=== PATIENT | female | born 1965 | race African-American/Black ===

== ENCOUNTER 2018-03-26 10:59 | Inpatient (IN) | payer BC, OTHER ==
[2018-03-26 11:31] VITALS: BMI 21.7
--- NOTE | 2018-03-26 12:22 | HP ---
"CIWA Score - CIWA Score Nausea/Vomitin-Int. Nausea w/Dry Heave Muscle Tremors: 4-Moderate,w/Arms Extend Anxiety: 3 Agitation: 1-Slight > Activity Paroxysmal Sweats: 1-Minimal Palms Moist Orientation: 0-Oriented Tacttile Disturbances: 0-None Auditory Disturbances: 0-None Visual Disturbances: 0-None Headache: 2-Mild CIWA-Ar Total Score: 15 Admission ROS S - HPI Chief Complaint: Here for alcohol withdrawal. Allergies/Adverse Reactions: Allergies Allergy/AdvReac Type Severity Reaction Status Date / Time No Known Allergies Allergy Verified 03/26/18 11:39 History of Present Illness: Hx alcohol use since age [age]. Was drinking 1 pint vodka until 2 weeks ago and in an effort to stop has decreased alcohol use to 1/2 pint vodka daily. Hx blackouts. Denies hx seizures. Denies Xanax or other substances of abuse. Longest length of sobriety was 16 months in early , and January 2018 had 3 weeks sobriety. Hx hypertension and acid reflux. 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 Hx acid reflux. Hx depression - on meds. [facility] sees a mental health provider. Was seen at [facility] on 03/26/18 and [facility] was given B/P meds. Discharge papers in belongings. Search Terms: Emilee lopez, 1965 Search Date: 03/26/2018 12:18:00 PM The Drug Utilization Report below displays all of the controlled substance prescriptions, if any, that your patient has filled in the last twelve months. The information displayed on this report is compiled from pharmacy submissions to the Department, and accurately reflects the information as submitted by the pharmacies. This report was requested by: Kristine Moore | Reference #: [id number] There are no results for the search terms that you entered. Exam Limitations: No Limitations - Ebola screening Have you traveled outside of the country in the last 21 days: No (N) Have you had contact with anyone from an Ebola affected area: No Have you been sick,other than usual withdrawal symptoms: No Do you have a fever: No - Review of Systems Constitutional: Diaphoresis, Changes in sleep (Difficulty falling asleep) EENT: reports: Blurred Vision (needs glasses.), Recent change in vision ((R) eye w/ stroke resulting in partial vision in (R) eye. Seen by opthamologist at home) Respiratory: reports: Cough (Dry cought x 2 days. Denies chest pain or SOB) Cardiac: reports: No Symptoms Reported GI: reports: Nausea (r/t withdrawal), Vomiting (was vomiting last 2 days r/t withdrawal) : reports: No Symptoms Reported Musculoskeletal: reports: No Symptoms Reported Integumentary: reports: No Symptoms Reported Neuro: reports: Headache (r/t withdrawal) Endocrine: reports: No Symptoms Reported Hematology: reports: No Symptoms Reported Psychiatric: reports: Judgement Intact, Orientated x3, Agitated, Anxious, Depressed (Denies thoughts of harming self or others.) Patient History - Patient Medical History Hx Anemia: No Hx Asthma: No Hx Chronic Obstructive Pulmonary Disease (COPD): No Hx Cancer: No Hx Cardiac Disorders: Yes (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) Hx Congestive Heart Failure: No Hx Hypertension: Yes (ON MEDICATION) Hx Hypercholesterolemia: No Hx Pacemaker: No HX Cerebrovascular Accident: No Hx Seizures: No (black outs) Hx Dementia: No Hx Diabetes: No Hx Gastrointestinal Disorders: Yes (GERD) Hx Liver Disease: No Hx Genitourinary Disorders: No Hx Sexually Transmitted Disorders: No Hx Renal Disease (ESRD): No Hx Thyroid Disease: No Hx Human Immunodeficiency Virus (HIV): No (neg 2014) Hx Hepatitis C: No Hx Depression: Yes ( Denies suicide or violent ideation) Hx Suicide Attempt: No Hx Bipolar Disorder: No Hx Schizophrenia: No - Patient Surgical History Past Surgical History: Yes Hx Neurologic Surgery: No Hx Cataract Extraction: No Hx Cardiac Surgery: No Hx Lung Surgery: No Hx Breast Surgery: No Hx Breast Biopsy: No Hx Abdominal Surgery: No Hx Appendectomy: No Hx Cholecystectomy: No Hx Genitourinary Surgery: No Hx Section: No Hx Orthopedic Surgery: No Other Surgical History: tubal ligation in 2005 Anesthesia Reaction: No - PPD History Previous Implant?: Yes Documented Results: Negative w/proof Implanted On Prior [facility] Admission?: Yes Date: 04/24/15 Results: NEGATIVE PPD to be Administered?: Yes - Reproductive History Patient is a Female of Child Bearing Age (11 -55 yrs old): Yes Last Menstrual Period: 03/25/14 (Menopause) Patient : No - Smoking Cessation Smoking history: Former smoker Have you smoked in the past 12 months: No If you are a former smoker, when did you quit?: at age 37 yrs Hx Chewing Tobacco Use: No Initiated information on smoking cessation: No - Substance & Tx. History Hx Alcohol Use: Yes Hx Substance Use: Yes Substance Use Type: Alcohol Hx Substance Use Treatment: Yes (detox ) - Substances Abused Alprazolam (Xanax) Date of Last Use: 03/25/18 Alcohol Route: Oral Frequency: Daily Amount used: 1/2 PINT OF VODKA Age of first use: 20 Date of Last Use: 03/25/18 Family Disease History - Family Disease History Family Disease History: Other: Father, Brother, Sister Admission Physical Exam [facility] - Vital Signs Vital Signs: Vital Signs - 24 hr 03/26/18 11:29 Temperature 99.1 F Pulse Rate 64 Respiratory 18 Rate Blood Pressure 132/84 - Physical General Appearance: Yes: Mild Distress, Tremorous, Irritable, Sweating, Anxious HEENTM: Yes: EOMI, Hearing grossly Normal, ADOLPH Respiratory: Yes: Chest Non-Tender, Lungs Clear, Normal Breath Sounds, No Respiratory Distress Neck: Yes: No masses,lesions,Nodules, Supple Breast: Yes: Breast Exam Deferred Abdominal: Yes: Non Tender, Soft, Increased Bowel Sounds Genitourinary: Yes: Within Normal Limits Back: Yes: Normal Inspection Musculoskeletal: Yes: full range of Motion, Gait Steady Extremities: Yes: Normal Capillary Refill, Normal Range of Motion, Non-Tender, Tremors (hands upon arms extended extended) Neurological: Yes: cell support operator II-XII NML intact, Fully Oriented, Motor Strength 5/5, Normal Mood/Affect Integumentary: Yes: Normal Color, Dry, Warm Lymphatic: Yes: Within Normal Limits - Diagnostic (1) Alcohol dependence with uncomplicated withdrawal Current Visit: Yes Status: Acute (2) Essential (primary) hypertension Current Visit: Yes Status: Chronic (3) GERD (gastroesophageal reflux disease) Current Visit: Yes Status: Chronic Qualifiers: Esophagitis presence: esophagitis presence not specified Qualified Code(s) : K21.9 - Gastro-esophageal reflux disease without esophagitis Cleared for Admission [facility] - Detox or Rehab [facility] Level of Care: Medically Managed Detox Regimen/Protocol: Librium [facility] Breath Alcohol Content Breath Alcohol Content: 0 Urine Pregancy Test - Result Urine Test Results: Negative- NO Line Present Urine Drug Screen - Results Drug Screen Negative: Yes"
[2018-03-26] MEDS ORDERED: MAG HYDROX/AL HYDROX/SIMETH 30 ML UNIT-DOSE CUP PO PRN (12:57)
[2018-03-26] MEDS ORDERED: MAGNESIUM CITRATE 300 ML BOTTLE PO PRN (12:57)
[2018-03-26] MEDS ORDERED: IBUPROFEN 400 MG TABLET (FP) PO PRN (12:57)
[2018-03-26] MEDS ORDERED: MENTHOL/PHENOL 1 EACH UD MM PRN (12:57)
[2018-03-26] MEDS ORDERED: LOPERAMIDE HCL 2 MG CAPSULE PO PRN (12:57)
[2018-03-26] MEDS ORDERED: P-EPHED 60MG/TRIPROLIDI 2.5MG TABLET PO PRN (12:57)
[2018-03-26] MEDS ORDERED: chlordiazePOXIDE HCL 25 MG CAPSULE PO PRN (12:57)
[2018-03-26] MEDS ORDERED: hydrOXYzine PAMOATE 50 MG CAPSULE (FP) PO PRN (12:57)
[2018-03-26] MEDS ORDERED: guaiFENesin/D-METHORPHAN HB 10 ML UNIT-DOSE CUPS PO PRN (12:57)
[2018-03-26] MEDS ORDERED: MAGNESIUM HYDROX 2400MG/30ML ORAL SUSPENSION 30 ML CUP PO PRN (12:57)
[2018-03-26] MEDS ORDERED: ACETAMINOPHEN 325 MG TABLET (FP) PO PRN (12:57)
[2018-03-26] MEDS ORDERED: chlordiazePOXIDE HCL 25 MG CAPSULE PO ONE (14:45)
[2018-03-26] MEDS: chlordiazePOXIDE HCL 25 MG CAPSULE PO SCH ×2 (17:54→22:06)
[2018-03-26 21:20] LABS: URINE APPEARANCE CLEAR; URINE BILIRUBIN NEGATIVE (<2.0 mg/dL); URINE COLOR YELLOW; URINE GLUCOSE (UA) NEGATIVE (NEGATIVE); URINE KETONE NEGATIVE (NEGATIVE); URINE LEUK ESTERASE NEGATIVE (NEGATIVE); URINE NITRITE NEGATIVE (NEGATIVE)
[2018-03-26 21:21] LABS: URINE PROTEIN 2+ (NEGATIVE)
[2018-03-26 21:26] LABS: EPI CELLS RARE /HPF (FEW); URINE MUCUS RARE
[2018-03-26] MEDS: MELATONIN 5 MG TABLETS PO PRN (22:06)
[2018-03-26] MEDS: THIAMINE HCL 100 MG TABLET (FP) PO SCH (22:06)
[2018-03-27] MEDS: chlordiazePOXIDE HCL 25 MG CAPSULE PO SCH ×4 (06:14→22:35)
[2018-03-27 09:52] LABS: MCH 30.5 pg (25.7-33.7); MEAN PLT VOLUME 8.9 fl (7.5-11.1)
[2018-03-27 09:54] LABS: HEMATOCRIT 42.3 % (32.4-45.2); HEMOGLOBIN 13.8 GM/dL (10.7-15.3); MCHC 32.7 g/dl (32.0-36.0); MEAN CELL VOLUME 93.3 fl (80-96); PLATELET COUNT 209 K/MM3 (134-434); RBC 4.53 M/mm3 (3.60-5.2); RDW 13.9 % (11.6-15.6); WHITE BLOOD COUNT 4.6 K/mm3 (4.0-10.0)
[2018-03-27 09:59] LABS: CHLORIDE 94 mmol/L (98-107); POTASSIUM 4.1 mmol/L (3.5-5.1); SODIUM 137 mmol/L (136-145)
[2018-03-27 10:09] LABS: ALBUMIN 4.1 g/dl (3.4-5.0); ALK PHOS 96 U/L (45-117); ANION GAP 12 MMOL/L (8-16); BILIRUBIN,TOTAL 1.5 mg/dL (0.2-1.0); BLOOD UREA NITROGEN 12 mg/dL (7-18); CALCIUM 9.4 mg/dL (8.5-10.1); CO2 31 mmol/L (21-32); CREATININE 0.8 mg/dL (0.55-1.02); GLUCOSE,RANDOM 130 mg/dL (74-106); SGOT/AST 43 U/L (15-37); SGPT/ALT 34 U/L (12-78)
[2018-03-27] MEDS: PANTOPRAZOLE 20 MG TABLET (FP) PO SCH (10:15)
[2018-03-27] MEDS: amLODIPine BESYLATE 5 MG TABLET (FP) PO SCH (10:15)
[2018-03-27] MEDS: PRENATAL VITAMINS W/ FOLIC ACID TABLET (FP) PO SCH (10:15)
--- NOTE | 2018-03-27 10:35 | CONSULT ---
[facility] Psychiatric Consult - Data Date of interview: 03/27/18 Admission source: [facility] Identifying data: Patient is a 52 year old single female, mother of five, unemployed, domiciled, and is supported by public assistance. This is one of multiple admissions for patient. Pt. admitted to for alcohol dependence. Substance Abuse History: Smoking Cessation. Smoking history: Former smoker. Have you smoked in the past 12 months: No. If you are a former smoker, when did you quit?: at age 37 yrs. Hx Chewing Tobacco Use: No. Initiated information on smoking cessation: No. - Substance & Tx. History. Hx Alcohol Use: Yes. Hx Substance Use: Yes. Substance Use Type: Alcohol. Hx Substance Use Treatment: Yes (detox ). - Substances Abused. Alprazolam (Xanax). Date of Last Use: 03/25/18. Alcohol. Route: Oral. Frequency: Daily. Amount used: 1/2 PINT OF VODKA. Age of first use: 20. Date of Last Use: Medical History: hypertension, GERD Psychiatric History: Patient reports multiple admissions to the CPEP at [facility] but was discharged after being retained for 72 hours. Outpatient psychiatric services is provided at the [facility] in [place] and is prescribed prozac 20mg daily + Naltrexone 50mg. Pt. was recently restarted on prozac 10mg while awaiting transfer to detox at [facility]. Pt. requesting to continue prozac at 10mg. Pt. denies h/o suicide attempt. Physical/Sexual Abuse/Trauma History: denies. Mental Status Exam - Mental Status Exam Alert and Oriented to: Time, Place, Person Cognitive Function: Good Patient Appearance: Well Groomed Mood: Euthymic Affect: Appropriate Patient Behavior: Appropriate, Cooperative Speech Pattern: Clear, Appropriate Voice Loudness: Normal Thought Process: Intact, Goal Oriented Thought Disorder: Not Present Hallucinations: Denies Suicidal Ideation: Denies Homicidal Ideation: Denies Insight/Judgement: Poor Sleep: Fair Appetite: Fair Muscle strength/Tone: Normal Gait/Station: Normal Psychiatric Findings - Problem List ([place] 1, 2,3) (1) Alcohol dependence with uncomplicated withdrawal Current Visit: Yes Status: Acute (2) Alcohol-induced mood disorder Current Visit: Yes Status: Acute - Initial Treatment Plan Initial Treatment Plan: Psychoeducation provided. Detoxification in progress. Prozac 10mg daily. Benefits and side effects discussed. Verbal consent given.
--- NOTE | 2018-03-27 12:12 | PN ---
[facility] CIWA - CIWA Score Nausea/Vomitin-Mild Nausea/No Vomiting Muscle Tremors: 4-Moderate,w/Arms Extend Anxiety: 3 Agitation: 4-Moderately Restless Paroxysmal Sweats: 1-Minimal Palms Moist Orientation: 1-Uncertain about Date Tacttile Disturbances: 0-None Auditory Disturbances: 0-None Visual Disturbances: 0-None Headache: 0-None Present CIWA-Ar Total Score: 14 BHS Progress Note (SOAP) Subjective: sweat tremor gi distress muscle aches trouble sleep at night Objective: 03/27/18 12:13 Vital Signs Temperature 99.0 F 03/27/18 09:32 Pulse Rate 93 H 03/27/18 09:32 Respiratory Rate 16 03/27/18 09:32 Blood Pressure 109/80 03/27/18 09:32 O2 Sat by Pulse Oximetry (%) Laboratory Last Values WBC 4.6 K/mm3 (4.0-10.0) 03/27/18 07:30 RBC 4.53 M/mm3 (3.60-5.2) 03/27/18 07:30 Hgb 13.8 GM/dL (10.7-15.3) 03/27/18 07:30 Hct 42.3 % (32.4-45.2) 03/27/18 07:30 MCV 93.3 fl (80-96) 03/27/18 07:30 MCH 30.5 pg (25.7-33.7) 03/27/18 07:30 MCHC 32.7 g/dl (32.0-36.0) 03/27/18 07:30 RDW 13.9 % (11.6-15.6) 03/27/18 07:30 Plt Count 209 K/MM3 (134-434) D 03/27/18 07:30 MPV 8.9 fl (7.5-11.1) 03/27/18 07:30 Sodium 137 mmol/L (136-145) 03/27/18 07:30 Potassium 4.1 mmol/L (3.5-5.1) 03/27/18 07:30 Chloride 94 mmol/L (98-107) L 03/27/18 07:30 Carbon Dioxide 31 mmol/L (21-32) 03/27/18 07:30 Anion Gap 12 MMOL/L (8-16) 03/27/18 07:30 BUN 12 mg/dL (7-18) 03/27/18 07:30 Creatinine 0.8 mg/dL (0.55-1.02) 03/27/18 07:30 Creat Clearance w eGFR > 60 (>60) 03/27/18 07:30 Random Glucose 130 mg/dL (74-106) H 03/27/18 07:30 Calcium 9.4 mg/dL (8.5-10.1) 03/27/18 07:30 Total Bilirubin 1.5 mg/dL (0.2-1.0) H 03/27/18 07:30 AST 43 U/L (15-37) H 03/27/18 07:30 ALT 34 U/L (12-78) 03/27/18 07:30 Alkaline Phosphatase 96 U/L (45-117) 03/27/18 07:30 Total Protein 8.0 g/dl (6.4-8.2) 03/27/18 07:30 Albumin 4.1 g/dl (3.4-5.0) 03/27/18 07:30 Urine Color Yellow 03/26/18 16:50 Urine Appearance Clear 03/26/18 16:50 Urine pH 7.0 (5.0-8.0) D 03/26/18 16:50 Ur Specific [place] 1.028 (1.001-1.035) 03/26/18 16:50 Urine Protein 2+ (NEGATIVE) H 03/26/18 16:50 Urine Glucose (UA) Negative (NEGATIVE) 03/26/18 16:50 Urine Ketones Negative (NEGATIVE) 03/26/18 16:50 Urine Blood Negative (NEGATIVE) 03/26/18 16:50 Urine Nitrite Negative (NEGATIVE) 03/26/18 16:50 Urine Bilirubin Negative (<2.0 mg/dL) 03/26/18 16:50 Urine Urobilinogen 2.0 mg/dL (0.2-1.0) H 03/26/18 16:50 Ur Leukocyte Esterase Negative (NEGATIVE) 03/26/18 16:50 Urine WBC (Auto) 2 /hpf (3-5) 03/26/18 16:50 Urine RBC (Auto) 8 /hpf (0-3) 03/26/18 16:50 Ur Epithelial Cells Rare /HPF (FEW) 03/26/18 16:50 Urine Mucus Rare 03/26/18 16:50 lab noted Assessment: 03/27/18 12:13 withdrawal sx Plan: continue detox
--- NOTE | 2018-03-27 14:18 | EKG ---
Test Reason : Blood Pressure : / mmHG Vent. Rate : 056 BPM Atrial Rate : 056 BPM P-R Int : 180 ms QRS Dur : 100 ms QT Int : 442 ms P-R-T Axes : 054 016 054 degrees QTc Int : 426 ms SINUS BRADYCARDIA WITH PREMATURE ATRIAL COMPLEXES OTHERWISE NORMAL ECG NO PREVIOUS ECGS AVAILABLE Confirmed by PAUL BYRD MD ([id number]) on 03/27/2018 2:18:03 PM Referred By: Confirmed By:PAUL BYRD MD
[2018-03-27] MEDS: THIAMINE HCL 100 MG TABLET (FP) PO SCH (22:35)
[2018-03-27] MEDS: MELATONIN 5 MG TABLETS PO PRN (22:35)
[2018-03-28] MEDS: chlordiazePOXIDE HCL 25 MG CAPSULE PO SCH ×2 (07:21→10:18)
[2018-03-28] MEDS: FLUoxetine HCL 10 MG CAPSULE (FP) PO SCH (10:18)
[2018-03-28] MEDS: PRENATAL VITAMINS W/ FOLIC ACID TABLET (FP) PO SCH (10:18)
[2018-03-28] MEDS: amLODIPine BESYLATE 5 MG TABLET (FP) PO SCH (10:18)
[2018-03-28] MEDS: PANTOPRAZOLE 20 MG TABLET (FP) PO SCH (10:18)
--- NOTE | 2018-03-28 16:29 | PN ---
[facility] CIWA - CIWA Score Nausea/Vomitin-No Nausea/No Vomiting Muscle Tremors: 4-Moderate,w/Arms Extend Anxiety: 2 Agitation: 3 Paroxysmal Sweats: 1-Minimal Palms Moist Orientation: 0-Oriented Tacttile Disturbances: 2-Mild Itch/Numbness/Burn Auditory Disturbances: 0-None Visual Disturbances: 0-None Headache: 0-None Present CIWA-Ar Total Score: 12 BHS Progress Note (SOAP) Subjective: TREMOR SWEAT RESTLESSNESS ANXIETY IRRITABLE Objective: 03/28/18 16:28 Vital Signs Temperature 98.5 F 03/28/18 13:46 Pulse Rate 95 H 03/28/18 13:46 Respiratory Rate 16 03/28/18 13:46 Blood Pressure 109/74 03/28/18 13:46 O2 Sat by Pulse Oximetry (%) Laboratory Last Values WBC 4.6 K/mm3 (4.0-10.0) 03/27/18 07:30 RBC 4.53 M/mm3 (3.60-5.2) 03/27/18 07:30 Hgb 13.8 GM/dL (10.7-15.3) 03/27/18 07:30 Hct 42.3 % (32.4-45.2) 03/27/18 07:30 MCV 93.3 fl (80-96) 03/27/18 07:30 MCH 30.5 pg (25.7-33.7) 03/27/18 07:30 MCHC 32.7 g/dl (32.0-36.0) 03/27/18 07:30 RDW 13.9 % (11.6-15.6) 03/27/18 07:30 Plt Count 209 K/MM3 (134-434) D 03/27/18 07:30 MPV 8.9 fl (7.5-11.1) 03/27/18 07:30 Sodium 137 mmol/L (136-145) 03/27/18 07:30 Potassium 4.1 mmol/L (3.5-5.1) 03/27/18 07:30 Chloride 94 mmol/L (98-107) L 03/27/18 07:30 Carbon Dioxide 31 mmol/L (21-32) 03/27/18 07:30 Anion Gap 12 MMOL/L (8-16) 03/27/18 07:30 BUN 12 mg/dL (7-18) 03/27/18 07:30 Creatinine 0.8 mg/dL (0.55-1.02) 03/27/18 07:30 Creat Clearance w eGFR > 60 (>60) 03/27/18 07:30 Random Glucose 130 mg/dL (74-106) H 03/27/18 07:30 Calcium 9.4 mg/dL (8.5-10.1) 03/27/18 07:30 Total Bilirubin 1.5 mg/dL (0.2-1.0) H 03/27/18 07:30 AST 43 U/L (15-37) H 03/27/18 07:30 ALT 34 U/L (12-78) 03/27/18 07:30 Alkaline Phosphatase 96 U/L (45-117) 03/27/18 07:30 Total Protein 8.0 g/dl (6.4-8.2) 03/27/18 07:30 Albumin 4.1 g/dl (3.4-5.0) 03/27/18 07:30 Urine Color Yellow 03/26/18 16:50 Urine Appearance Clear 03/26/18 16:50 Urine pH 7.0 (5.0-8.0) D 03/26/18 16:50 Ur Specific [place] 1.028 (1.001-1.035) 03/26/18 16:50 Urine Protein 2+ (NEGATIVE) H 03/26/18 16:50 Urine Glucose (UA) Negative (NEGATIVE) 03/26/18 16:50 Urine Ketones Negative (NEGATIVE) 03/26/18 16:50 Urine Blood Negative (NEGATIVE) 03/26/18 16:50 Urine Nitrite Negative (NEGATIVE) 03/26/18 16:50 Urine Bilirubin Negative (<2.0 mg/dL) 03/26/18 16:50 Urine Urobilinogen 2.0 mg/dL (0.2-1.0) H 03/26/18 16:50 Ur Leukocyte Esterase Negative (NEGATIVE) 03/26/18 16:50 Urine WBC (Auto) 2 /hpf (3-5) 03/26/18 16:50 Urine RBC (Auto) 8 /hpf (0-3) 03/26/18 16:50 Ur Epithelial Cells Rare /HPF (FEW) 03/26/18 16:50 Urine Mucus Rare 03/26/18 16:50 RPR Titer Nonreactive (NONREACTIVE) 03/27/18 07:30 LAB NOTED Assessment: 03/28/18 16:29 WITHDRAWAL SX Plan: CONTINUE DETOX
[2018-03-28] MEDS: chlordiazePOXIDE 5 MG CAPSULE PO SCH ×2 (17:28→22:17)
[2018-03-28] MEDS: THIAMINE HCL 100 MG TABLET (FP) PO SCH (22:17)
[2018-03-29] MEDS: chlordiazePOXIDE 5 MG CAPSULE PO SCH ×2 (06:03→10:11)
[2018-03-29] MEDS: FLUoxetine HCL 10 MG CAPSULE (FP) PO SCH (10:11)
[2018-03-29] MEDS: PANTOPRAZOLE 20 MG TABLET (FP) PO SCH (10:11)
[2018-03-29] MEDS: PRENATAL VITAMINS W/ FOLIC ACID TABLET (FP) PO SCH (10:11)
[2018-03-29] MEDS: amLODIPine BESYLATE 5 MG TABLET (FP) PO SCH (10:11)
[2018-03-29] MEDS: chlordiazePOXIDE HCL 10 MG CAPSULE PO SCH ×2 (17:35→22:23)
[2018-03-29] MEDS: THIAMINE HCL 100 MG TABLET (FP) PO SCH (22:23)
[2018-03-30] MEDS: chlordiazePOXIDE HCL 10 MG CAPSULE PO SCH ×2 (06:24→10:45)
[2018-03-30 09:05] VITALS: BP 108/83; PULSE 79; TEMP 98.2
[2018-03-30] MEDS: amLODIPine BESYLATE 5 MG TABLET (FP) PO SCH (10:45)
[2018-03-30] MEDS: FLUoxetine HCL 10 MG CAPSULE (FP) PO SCH (10:45)
[2018-03-30] MEDS: PRENATAL VITAMINS W/ FOLIC ACID TABLET (FP) PO SCH (10:45)
[2018-03-30] MEDS: PANTOPRAZOLE 20 MG TABLET (FP) PO SCH (10:45)
== END 2018-03-30 12:23 | disposition home or self-care (01) | DRG 775 ==
LOC: YASAS 10:59 → Y6N 14:42
PROC: HZ2ZZZZ Detoxification Services for Substance Abuse Treatment (ICD-10-PCS; principal; 2018-03-26)
DX: F10.230 Alcohol dependence with withdrawal, uncomplicated (principal); F10.24 Alcohol dependence with alcohol-induced mood disorder; F32.9 Major depressive disorder, single episode, unspecified; I10 Essential (primary) hypertension; K21.9 Gastro-esophageal reflux disease without esophagitis; Z86.79 Personal history of other diseases of the circulatory system
CPT/HCPCS: 36415; 80053; 81003; 81015; 85027; 86593; 93005; 93010

== ENCOUNTER 2020-04-25 11:38 | Inpatient (IN) | payer BC ==
--- NOTE | 2020-04-25 12:02 | BHS.RME ---
Substance Use & Tx History - Substance Use History Alcohol Substance amount: 1/2 pint vodka but used to use up to 3 pints Frequency of use: Daily Substance route: Oral Date of Last Use: 04/25/20 (started age 16 last drank 5AM today) Nicotine Substance amount: former smoker quit 1 year ago Physical/Psych/Mental Status - Behavior General Behavior: Increased activity (restlessness, agitation) Eye Contact: Normal - Cooperativeness Cooperativeness: Cooperative - Thinking Thought Processes: Tight, Logical, Goal Directed - Physical Health Problems Is patient presently having any pain?: No Does patient presently have any injuries (include location): No Does patient currently have a fever: No Is patient : No CIWA Nausea/Vomitin Muscle Tremors: 3 Anxiety: 2 Agitation: 2 Paroxysmal Sweats: 2 Orientation: 0-Oriented Tacttile Disturbances: 0-None Auditory Disturbances: 0-None Visual Disturbances: 0-None Headache: 0-None Present (got one dose of librium earlier this morning at [facility], left D/C papers at home. She was having visual hallucinations yesterday.) CIWA-Ar Total Score: 11
--- NOTE | 2020-04-25 12:35 | HP ---
CIWA Score Nausea/Vomitin (mitigated by one dose of librium given at [facility] and then referred here for detox.) Muscle Tremors: 3 Anxiety: 2 Agitation: 2 Paroxysmal Sweats: 2 Orientation: 0-Oriented Tacttile Disturbances: 0-None Auditory Disturbances: 0-None Visual Disturbances: 0-None Headache: 0-None Present (got one dose of librium earlier this morning at [facility], left D/C papers at home. She was having visual hallucinations yesterday.) CIWA-Ar Total Score: 11 - Admission Criteria OASAS Guidelines: Admission for Medically Managed Detox: Requires at least one of the followin. CIWA greater than 12 2. Seizures within the past 24 hours 3. Delirium tremens within the past 24 hours 4. Hallucinations within the past 24 hours 5. Acute intervention needed for co occurring medical disorder 6. Acute intervention needed for co occurring psychiatric disorder 7. Severe withdrawal that cannot be handled at a lower level of care (continued vomiting, continued diarrhea, abnormal vital signs) requiring intravenous medication and/or fluids 8. Admitting History and Physical - Past Medical History ...LMP: 03/25/14 (Menopause) - Smoking History Smoking history: Former smoker Have you smoked in the past 12 months: No Aproximately how many cigarettes per day: 1 If you are a former smoker, when did you quit?: at age 37 yrs - Alcohol/Substance Use Hx Alcohol Use: Yes Admission ROS [facility] Chief Complaint: "I want to get my life together and stop drinking." Allergies/Adverse Reactions: Allergies Allergy/AdvReac Type Severity Reaction Status Date / Time No Known Allergies Allergy Verified 03/26/18 11:39 History of Present Illness: 55 year old female with history of alcohol detox with withdrawal. She is s/p been seen at [facility] and got 1 dose of librium this morning. She was taken there from street when she was observed by police to be very unsteady. She was last here at [facility] 03/26-03/28/18 AMA. She will sign behavioral contract to complete detox. - Substance Use History Alcohol Substance amount: 1/2 pint vodka but used to use up to 3 pints Frequency of use: Daily Substance route: Oral Date of Last Use: 04/25/20 (started age 16 last drank 5AM today) Nicotine Substance amount: former smoker quit 1 year ago PMH: GERD on Sucralfate, Stroke to Right Eye Psurg: Tubal ligation 14 years ago Psych: Depression and Anxiety ( Neurontin and Prozac) She lives in [address] in [place] and has 2 adult children. She has no legal problems. SHARI=0 CIWA=11 She meets criteria for detox as she has medical and psychiatric co-morbidities. Exam Limitations: No Limitations - Ebola screening Have you traveled outside of the country in the last 21 days: No Have you had contact with anyone from an Ebola affected area: No Have you been sick,other than usual withdrawal symptoms: No Do you have a fever: No - Review of Systems Constitutional: Chills EENT: reports: No Symptoms Reported Respiratory: reports: No Symptoms reported Cardiac: reports: No Symptoms Reported GI: reports: No Symptoms Reported : reports: No Symptoms Reported Musculoskeletal: reports: No Symptoms Reported Integumentary: reports: No Symptoms Reported Neuro: reports: Tremors, Unsteady Gait Endocrine: reports: No Symptoms Reported Hematology: reports: No Symptoms Reported Psychiatric: reports: No Sypmtoms Reported, Judgement Intact, Mood/Affect Appropiate, Orientated x3, Agitated, Anxious Other Systems: Reviewed and Negative Patient History - Patient Medical History Hx Anemia: No Hx Asthma: No Hx Chronic Obstructive Pulmonary Disease (COPD): No Hx Cancer: No Hx Cardiac Disorders: Yes (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) Hx Congestive Heart Failure: No Hx Hypertension: Yes (ON MEDICATION) Hx Hypercholesterolemia: No Hx Pacemaker: No HX Cerebrovascular Accident: No Hx Seizures: No (black outs) Hx Dementia: No Hx Diabetes: No Hx Gastrointestinal Disorders: Yes (GERD) Hx Liver Disease: No Hx Genitourinary Disorders: No Hx Sexually Transmitted Disorders: No Hx Renal Disease (ESRD): No Hx Thyroid Disease: No Hx Human Immunodeficiency Virus (HIV): No (neg 2014) Hx Hepatitis C: No Hx Depression: Yes ( Denies suicide or violent ideation) Hx Suicide Attempt: No Hx Bipolar Disorder: No Hx Schizophrenia: No - Patient Surgical History Past Surgical History: Yes Hx Neurologic Surgery: No Hx Cataract Extraction: No Hx Cardiac Surgery: No Hx Lung Surgery: No Hx Breast Surgery: No Hx Breast Biopsy: No Hx Abdominal Surgery: No Hx Appendectomy: No Hx Cholecystectomy: No Hx Genitourinary Surgery: No Hx Section: No Hx Orthopedic Surgery: No Other Surgical History: tubal ligation in 2005 Anesthesia Reaction: No - PPD History Date: 03/28/18 Results: NEGATIVE - Reproductive History Last Menstrual Period: 03/25/14 (Menopause) - Smoking Cessation Smoking history: Former smoker Have you smoked in the past 12 months: No Aproximately how many cigarettes per day: 1 If you are a former smoker, when did you quit?: at age 37 yrs Cigars Per Day: 1 Hx Chewing Tobacco Use: No Initiated information on smoking cessation: No - Substances abused Alcohol Substance route: Oral Frequency: Daily Amount used: 07/26 pint vodka Age of first use: 16 Date of last use: 04/25/20 (at 5AM only small amount, blackout 2017) Admission Physical Exam S - Physical General Appearance: Yes: Moderate Distress, Tremorous, Irritable, Sweating, Anxious HEENTM: Yes: EOMI, Hearing grossly Normal, Normal ENT Inspection, Normocephalic, Normal Voice, ADOLPH, Pharynx Normal, Tm's normal Respiratory: Yes: Chest Non-Tender, Lungs Clear, Normal Breath Sounds, No Respiratory Distress, No Accessory Muscle Use Neck: Yes: No masses,lesions,Nodules, Supple, Trachea in good position Breast: Yes: Breast Exam Deferred Cardiology: Yes: Regular Rhythm, Regular Rate, S1, S2 Abdominal: Yes: Normal Bowel Sounds, Non Tender, Soft Genitourinary: Yes: Within Normal Limits Back: Yes: Normal Inspection Musculoskeletal: Yes: full range of Motion, Gait Steady, Pelvis Stable Extremities: Yes: Normal Capillary Refill, Normal Inspection, Normal Range of Motion, Non-Tender Neurological: Yes: sign board erector II-XII NML intact, Fully Oriented, Alert, Motor Strength 5/5, Normal Mood/Affect, Normal Response Integumentary: Yes: Normal Color, Warm Lymphatic: Yes: Within Normal Limits - Diagnostic (1) Depression Current Visit: Yes Status: Acute (2) Alcohol dependence with uncomplicated withdrawal Current Visit: Yes Status: Acute (3) Alcohol-induced sleep disorder Current Visit: Yes Status: Acute (4) Essential (primary) hypertension Current Visit: Yes Status: Chronic (5) GERD (gastroesophageal reflux disease) Current Visit: Yes Status: Chronic Qualifiers: Esophagitis presence: esophagitis presence not specified Qualified Code(s): K21.9 - Gastro-esophageal reflux disease without esophagitis (6) Anxiety Current Visit: Yes Status: Acute Cleared for Admission [facility] - Detox or Rehab [facility] Level of Care: Medically Managed Detox Regimen/Protocol: Librium Claeared for Rehab Admission: No Screened but not Admitted - Documentation of Visit Screened but not Admitted: No Breathalyzer - Breathalyzer Breathalyzer: 0 Vital Signs - Vital Signs Vital signs refused: No Temperature: 97.4 F Pulse Rate: 73 Respiratory Rate: 12 Blood Pressure: 159/95 BP Location: Right Arm Blood Pressure position: Sitting - Height Height: 5 ft 11 in - Weight Weight: 285 lb Weight measurement method: Standing scale - BMI Body Mass Index (BMI): 39.7 - Bowel Function Bowel Movement: No Inpatient Rehab Admission - Rehab Decision to Admit Inpatient rehab admission?: No
[2020-04-25] MEDS ORDERED: METHOCARBAMOL 500 MG TABLET PO PRN (12:44)
[2020-04-25] MEDS ORDERED: BISMUTH SUBSALICYLATE 262 MG/15 ML BTL PO PRN (12:44)
[2020-04-25] MEDS ORDERED: ONDANSETRON *ODT* 4 MG TABLET SL PRN (12:44)
[2020-04-25] MEDS ORDERED: ACETAMINOPHEN 325 MG TABLET (FP) PO PRN ×2 (12:44)
[2020-04-25] MEDS ORDERED: MAG HYDROX/AL HYDROX/SIMETH 30 ML UNIT-DOSE CUP PO PRN (12:44)
[2020-04-25] MEDS ORDERED: IBUPROFEN 400 MG TABLET (FP) PO PRN (12:44)
[2020-04-25] MEDS ORDERED: MENTHOL/PHENOL 1 EACH UD MM PRN (12:44)
[2020-04-25] MEDS ORDERED: NICOTINE POLACRILEX 2 MG GUM BUC PRN (12:44)
[2020-04-25] MEDS ORDERED: MAGNESIUM CITRATE 300 ML BOTTLE PO PRN (12:44)
[2020-04-25] MEDS ORDERED: MAGNESIUM HYDROX 2400MG/30ML ORAL SUSPENSION 30 ML CUP PO PRN (12:44)
[2020-04-25] MEDS ORDERED: chlordiazePOXIDE HCL 25 MG CAPSULE PO PRN (12:44)
[2020-04-25] MEDS ORDERED: hydrOXYzine PAMOATE 25 MG CAPSULE (FP) PO SCH (14:00)
[2020-04-25 14:11] VITALS: BMI 25.7
[2020-04-25] MEDS: amLODIPine BESYLATE 5 MG TABLET (FP) PO SCH (14:14)
[2020-04-25] MEDS: PRENATAL VITAMINS W/ FOLIC ACID TABLET (FP) PO SCH (14:14)
[2020-04-25] MEDS: NICOTINE 7 MG/24 HOURS TOPICAL PATCH TD SCH (14:15)
[2020-04-25] MEDS: chlordiazePOXIDE HCL 25 MG CAPSULE PO SCH ×3 (14:15→22:45)
--- NOTE | 2020-04-25 15:18 | PN ---
B[facility] Progress Note Note: rash with some bumps on buttock area bacitracin oint ordered. pt states this type of medication has helped her in the past.
[2020-04-25] MEDS: BACITRACIN 0.9 GM PACKET TP SCH (15:58)
[2020-04-25 16:48] LABS: HEMATOCRIT 38.9 % (32.4-45.2); HEMOGLOBIN 12.9 GM/dL (10.7-15.3); MCH 30.9 pg (25.7-33.7); MCHC 33.2 g/dl (32.0-36.0); MEAN CELL VOLUME 93.1 fl (80-96); MEAN PLT VOLUME 9.1 fl (7.5-11.1); PLATELET COUNT 239 K/MM3 (134-434); RBC 4.18 M/mm3 (3.60-5.2); RDW 14.2 % (11.6-15.6); WHITE BLOOD COUNT 4.9 K/mm3 (4.0-10.0)
[2020-04-25 17:01] LABS: ALBUMIN 4.3 g/dl (3.4-5.0); BLOOD UREA NITROGEN 11.8 mg/dL (7-18); CALCIUM 9.1 mg/dL (8.5-10.1); POTASSIUM 3.8 mmol/L (3.5-5.1)
--- NOTE | 2020-04-25 17:06 | CONSULT ---
[facility] Psychiatric Consult - Data Date of interview: 04/25/20 Admission source: [facility] Identifying data: Patient is a 55 year old single black female, mother of five, unemployed, domiciled, and is supported with welfare benefits. This is one of multiple admissions for patient. Patient admitted to for alcohol dependence. Substance Abuse History: Smoking Cessation. Smoking history: Former smoker. Have you smoked in the past 12 months: No. Aproximately how many cigarettes per day: 1. If you are a former smoker, when did you quit?: at age 37 yrs. Cigars Per Day: 1. Hx Chewing Tobacco Use: No. Initiated information on smoking cessation: No. - Substances abused. Alcohol. Substance route: Oral. Frequency: Daily. Amount used: 1/2 pint vodka. Age of first use: 16. Date of last use: 04/25/20 (at 5AM only small amount, blackout 2017) Medical History: hypertension, GERD Psychiatric History: Ms. Lopez reports history of three psychiatric hospitalizations at [facility] due to depression. Patient is not currently provided with outpatient psychiatric care but has been treated in the past at [facility] in [place]. Ms. lopez reports receiving prozac 40mg and gabapentin 300mg QID when admitted to hospitals for medical concerns. She reports taking medication several days ago. Medication compliance is questionable. History of one suicide attempt via overdose by tylenol. Patient unable to provide a clear coheisve psychiatric history. At present patient reports stable mood. Physical/Sexual Abuse/Trauma History: denies. Mental Status Exam - Mental Status Exam Alert and Oriented to: Time, Place, Person Cognitive Function: Good Patient Appearance: Well Groomed Mood: Withdrawn Affect: Mood Congruent Patient Behavior: Cooperative Speech Pattern: Appropriate Voice Loudness: Mildly Soft/Quiet Thought Process: Goal Oriented Thought Disorder: Not Present Hallucinations: Denies Suicidal Ideation: Denies Homicidal Ideation: Denies Insight/Judgement: Poor Sleep: Poorly Appetite: Fair Muscle strength/Tone: Normal Gait/Station: Normal Psychiatric Findings - Problem List ([place] 1, 2,3) (1) History of depression Status: Acute (2) Alcohol dependence with uncomplicated withdrawal Status: Acute (3) Alcohol dependence Status: Acute (4) Alcohol-induced mood disorder Status: Acute - Initial Treatment Plan Initial Treatment Plan: Psychoeducation provided. Detoxification in progress. Will order Prozac 20mg + Gabapentin 200mg TID. Benefits and side effects discussed. Verbal consent given.
[2020-04-25] MEDS: GABAPENTIN 100 MG CAPSULE PO SCH (22:44)
[2020-04-25] MEDS: MELATONIN 5 MG TABLETS PO SCH (22:45)
[2020-04-25] MEDS: SUCRALFATE 1 GM TABLET (FP) PO SCH (22:45)
[2020-04-25] MEDS: THIAMINE HCL 100 MG TABLET (FP) PO SCH (22:45)
[2020-04-26] MEDS: GABAPENTIN 100 MG CAPSULE PO SCH ×3 (05:34→22:37)
[2020-04-26] MEDS: chlordiazePOXIDE HCL 25 MG CAPSULE PO SCH ×4 (05:34→22:37)
[2020-04-26] MEDS: BACITRACIN 0.9 GM PACKET TP SCH (10:28)
[2020-04-26] MEDS: SUCRALFATE 1 GM TABLET (FP) PO SCH ×2 (10:28→22:38)
[2020-04-26] MEDS: NICOTINE 7 MG/24 HOURS TOPICAL PATCH TD SCH (10:29)
[2020-04-26] MEDS: FLUoxetine HCL 20 MG CAPSULE PO SCH (10:29)
[2020-04-26] MEDS: amLODIPine BESYLATE 5 MG TABLET (FP) PO SCH (10:29)
[2020-04-26] MEDS: PRENATAL VITAMINS W/ FOLIC ACID TABLET (FP) PO SCH (10:29)
[2020-04-26] MEDS ORDERED: PNEUMOCOCCAL 23 VACCINE 0.5 ML VIAL IM ONE (12:00)
[2020-04-26] MEDS ORDERED: PNEUMOC 13-VAL CONJ-DIP CRM/PF 0.5 ML DISP.SYRIN IM ONE (12:00)
--- NOTE | 2020-04-26 18:51 | PN ---
[facility] CIWA - CIWA Score Nausea/Vomitin-No Nausea/No Vomiting Muscle Tremors: 2 Anxiety: 4-Mod. Anxious/Guarded Agitation: 3 Paroxysmal Sweats: No Perspiration Orientation: 0-Oriented Tacttile Disturbances: 2-Mild Itch/Numbness/Burn Auditory Disturbances: 0-None Visual Disturbances: 2-Mild Sensitivity Headache: 0-None Present CIWA-Ar Total Score: 13 BHS Progress Note (SOAP) Subjective: Anxious, Fatigue, Sweating, Interrupted Sleep. Objective: Patient A & O X 3, Observed Ambulating on Detox Unit Unassisted. In No Acute Distress. 04/26/20 18:48 Vital Signs Temperature 97.3 F L 04/26/20 17:33 Pulse Rate 97 H 04/26/20 17:33 Respiratory Rate 18 04/26/20 17:33 Blood Pressure 144/90 04/26/20 17:33 O2 Sat by Pulse Oximetry (%) 99 04/26/20 17:33 Laboratory Tests 04/25/20 04/25/20 04/25/20 13:00 13:00 13:00 WBC 4.9 RBC 4.18 Hgb 12.9 Hct 38.9 MCV 93.1 MCH 30.9 MCHC 33.2 RDW 14.2 Plt Count 239 MPV 9.1 Sodium 135 L Potassium 3.8 Chloride 98 Carbon Dioxide 30 Anion Gap 7 L BUN 11.8 Creatinine 1.0 Est GFR (CKD-EPI)AfAm 74.49 Est GFR (CKD-EPI)NonAf 64.27 Random Glucose 109 H Calcium 9.1 Total Bilirubin 2.0 H AST 72 H ALT 46 Alkaline Phosphatase 92 Total Protein 8.0 Albumin 4.3 Syphilis Serology Non-reactive COVID-19 ([facility]) HIV Ag/Ab Combo Qual 04/25/20 04/25/20 13:00 13:30 WBC RBC Hgb Hct MCV MCH MCHC RDW Plt Count MPV Sodium Potassium Chloride Carbon Dioxide Anion Gap BUN Creatinine Est GFR (CKD-EPI)AfAm Est GFR (CKD-EPI)NonAf Random Glucose Calcium Total Bilirubin AST ALT Alkaline Phosphatase Total Protein Albumin Syphilis Serology COVID-19 ([facility]) Not detected HIV Ag/Ab Combo Qual Negative Lab results noted. Patient has had elevated Total Bilirubin levels on previous Admissions. 04/26/20 18:50 Assessment: 04/26/20 18:49 WITHDRAWAL SYMPTOMS. ELEVATED AST LEVEL. HYPERBILRUBINEMIA. 04/26/20 18:50 Plan: Continue Detox. Increase Daily Oral Water Intake.
[2020-04-26] MEDS: THIAMINE HCL 100 MG TABLET (FP) PO SCH (22:37)
[2020-04-26] MEDS: MELATONIN 5 MG TABLETS PO SCH (22:38)
[2020-04-27] MEDS: GABAPENTIN 100 MG CAPSULE PO SCH ×3 (05:55→22:36)
[2020-04-27] MEDS: chlordiazePOXIDE HCL 25 MG CAPSULE PO SCH ×4 (05:55→22:36)
[2020-04-27] MEDS: BACITRACIN 0.9 GM PACKET TP SCH (10:20)
[2020-04-27] MEDS: SUCRALFATE 1 GM TABLET (FP) PO SCH ×2 (10:20→22:36)
[2020-04-27] MEDS: NICOTINE 7 MG/24 HOURS TOPICAL PATCH TD SCH (10:20)
[2020-04-27] MEDS: amLODIPine BESYLATE 5 MG TABLET (FP) PO SCH (10:21)
[2020-04-27] MEDS: FLUoxetine HCL 20 MG CAPSULE PO SCH (10:21)
[2020-04-27] MEDS: PRENATAL VITAMINS W/ FOLIC ACID TABLET (FP) PO SCH (10:21)
--- NOTE | 2020-04-27 17:29 | PN ---
S CIWA - CIWA Score Nausea/Vomitin-Mild Nausea/No Vomiting Muscle Tremors: 2 Anxiety: 2 Agitation: 2 Paroxysmal Sweats: 2 Orientation: 0-Oriented Tacttile Disturbances: 0-None Auditory Disturbances: 0-None Visual Disturbances: 0-None Headache: 0-None Present CIWA-Ar Total Score: 9 BHS Progress Note (SOAP) Subjective: Indigestion (has GERD), nausea. Pt request low sodium diet due to htn. Objective: 04/27/20 17:29 Last Vital Signs Temp Pulse Resp BP Pulse Ox 97.1 F L 86 16 140/90 100 04/27/20 12:52 04/27/20 12:52 04/27/20 12:52 04/27/20 12:52 04/27/20 12:52 Elevated b/p noted: has htn, on med Laboratory Tests 04/25/20 04/25/20 04/25/20 13:00 13:00 13:00 WBC 4.9 RBC 4.18 Hgb 12.9 Hct 38.9 MCV 93.1 MCH 30.9 MCHC 33.2 RDW 14.2 Plt Count 239 MPV 9.1 Sodium 135 L Potassium 3.8 Chloride 98 Carbon Dioxide 30 Anion Gap 7 L BUN 11.8 Creatinine 1.0 Est GFR (CKD-EPI)AfAm 74.49 Est GFR (CKD-EPI)NonAf 64.27 Random Glucose 109 H Calcium 9.1 Total Bilirubin 2.0 H AST 72 H ALT 46 Alkaline Phosphatase 92 Total Protein 8.0 Albumin 4.3 Syphilis Serology Non-reactive COVID-19 ([facility]) HIV Ag/Ab Combo Qual 04/25/20 04/25/20 13:00 13:30 WBC RBC Hgb Hct MCV MCH MCHC RDW Plt Count MPV Sodium Potassium Chloride Carbon Dioxide Anion Gap BUN Creatinine Est GFR (CKD-EPI)AfAm Est GFR (CKD-EPI)NonAf Random Glucose Calcium Total Bilirubin AST ALT Alkaline Phosphatase Total Protein Albumin Syphilis Serology COVID-19 ([facility]) Not detected HIV Ag/Ab Combo Qual Negative Labs reviewed: abnormal LFTs noted Assessment: 04/27/20 17:31 Withdrawal sxs HTN and Elevated LFTs noted Plan: Continue detox Encourage PO water intake HTN: monitor b/p, continue antihypertensive med Elevated LFTs noted: repeat hepatic function panel
[2020-04-27] MEDS: MELATONIN 5 MG TABLETS PO SCH (22:36)
[2020-04-27] MEDS: THIAMINE HCL 100 MG TABLET (FP) PO SCH (22:36)
[2020-04-28] MEDS ORDERED: chlordiazePOXIDE HCL 10 MG CAPSULE PO PRN
[2020-04-28] MEDS: chlordiazePOXIDE HCL 10 MG CAPSULE PO SCH ×4 (05:45→22:16)
[2020-04-28] MEDS: GABAPENTIN 100 MG CAPSULE PO SCH ×3 (05:45→22:16)
[2020-04-28] MEDS: NICOTINE 7 MG/24 HOURS TOPICAL PATCH TD SCH (10:35)
[2020-04-28] MEDS: BACITRACIN 0.9 GM PACKET TP SCH (10:35)
[2020-04-28] MEDS: FLUoxetine HCL 20 MG CAPSULE PO SCH (10:36)
[2020-04-28] MEDS: amLODIPine BESYLATE 5 MG TABLET (FP) PO SCH (10:36)
[2020-04-28] MEDS: PRENATAL VITAMINS W/ FOLIC ACID TABLET (FP) PO SCH (10:36)
[2020-04-28] MEDS: SUCRALFATE 1 GM TABLET (FP) PO SCH ×2 (10:37→22:17)
[2020-04-28 11:00] LABS: ALBUMIN 3.5 g/dl (3.4-5.0); BILIRUBIN,DIRECT 0.1 mg/dL (0.0-0.2); BILIRUBIN,TOTAL 0.5 mg/dL (0.2-1); TOT PROT 7.2 g/dl (6.4-8.2)
--- NOTE | 2020-04-28 12:30 | PN ---
S CIWA - CIWA Score Nausea/Vomitin-No Nausea/No Vomiting Muscle Tremors: 2 Anxiety: 1-Mildly Anxious Agitation: 1-Slight > Activity Paroxysmal Sweats: 1-Minimal Palms Moist Orientation: 0-Oriented Tacttile Disturbances: 0-None Auditory Disturbances: 0-None Visual Disturbances: 0-None Headache: 0-None Present CIWA-Ar Total Score: 5 BHS Progress Note (SOAP) Subjective: sweats restless agitation Objective: 04/28/20 12:29 Vital Signs Temperature 97.1 F L 04/28/20 08:46 Pulse Rate 89 04/28/20 08:46 Respiratory Rate 16 04/28/20 08:46 Blood Pressure 110/72 04/28/20 08:46 O2 Sat by Pulse Oximetry (%) 100 04/28/20 08:46 Laboratory Tests 04/25/20 04/25/20 04/25/20 13:00 13:00 13:00 WBC 4.9 RBC 4.18 Hgb 12.9 Hct 38.9 MCV 93.1 MCH 30.9 MCHC 33.2 RDW 14.2 Plt Count 239 MPV 9.1 Sodium 135 L Potassium 3.8 Chloride 98 Carbon Dioxide 30 Anion Gap 7 L BUN 11.8 Creatinine 1.0 Est GFR (CKD-EPI)AfAm 74.49 Est GFR (CKD-EPI)NonAf 64.27 Random Glucose 109 H Calcium 9.1 Total Bilirubin 2.0 H Direct Bilirubin AST 72 H ALT 46 Alkaline Phosphatase 92 Total Protein 8.0 Albumin 4.3 POC Urine HCG, Qual Syphilis Serology Non-reactive COVID-19 ([facility]) HIV Ag/Ab Combo Qual 04/25/20 04/25/20 04/25/20 13:00 13:30 13:34 WBC RBC Hgb Hct MCV MCH MCHC RDW Plt Count MPV Sodium Potassium Chloride Carbon Dioxide Anion Gap BUN Creatinine Est GFR (CKD-EPI)AfAm Est GFR (CKD-EPI)NonAf Random Glucose Calcium Total Bilirubin Direct Bilirubin AST ALT Alkaline Phosphatase Total Protein Albumin POC Urine HCG, Qual Negative Syphilis Serology COVID-19 ([facility]) Not detected HIV Ag/Ab Combo Qual Negative 04/28/20 07:30 WBC RBC Hgb Hct MCV MCH MCHC RDW Plt Count MPV Sodium Potassium Chloride Carbon Dioxide Anion Gap BUN Creatinine Est GFR (CKD-EPI)AfAm Est GFR (CKD-EPI)NonAf Random Glucose Calcium Total Bilirubin 0.5 Direct Bilirubin 0.1 AST 28 ALT 32 Alkaline Phosphatase 71 Total Protein 7.2 Albumin 3.5 POC Urine HCG, Qual Syphilis Serology COVID-19 ([facility]) HIV Ag/Ab Combo Qual labs noted aaox3 ambulating no acute distress Assessment: 04/28/20 12:30 withdrawals Plan: continue detox
[2020-04-28] MEDS: MELATONIN 5 MG TABLETS PO SCH (22:16)
[2020-04-28] MEDS: THIAMINE HCL 100 MG TABLET (FP) PO SCH (22:16)
[2020-04-29] MEDS: chlordiazePOXIDE HCL 10 MG CAPSULE PO SCH ×2 (06:43→17:30)
[2020-04-29] MEDS: GABAPENTIN 100 MG CAPSULE PO SCH ×3 (06:43→21:54)
[2020-04-29] MEDS: FLUoxetine HCL 20 MG CAPSULE PO SCH (10:34)
[2020-04-29] MEDS: SUCRALFATE 1 GM TABLET (FP) PO SCH ×2 (10:34→21:54)
[2020-04-29] MEDS: PRENATAL VITAMINS W/ FOLIC ACID TABLET (FP) PO SCH (10:34)
[2020-04-29] MEDS: amLODIPine BESYLATE 5 MG TABLET (FP) PO SCH (10:34)
[2020-04-29] MEDS: NICOTINE 7 MG/24 HOURS TOPICAL PATCH TD SCH (10:34)
[2020-04-29] MEDS: BACITRACIN 0.9 GM PACKET TP SCH (10:34)
--- NOTE | 2020-04-29 11:47 | PN ---
S CIWA - CIWA Score Nausea/Vomitin-No Nausea/No Vomiting Muscle Tremors: 1-None Visible, but [place] Anxiety: 1-Mildly Anxious Agitation: 1-Slight > Activity Paroxysmal Sweats: No Perspiration Orientation: 0-Oriented Tacttile Disturbances: 0-None Auditory Disturbances: 0-None Visual Disturbances: 0-None Headache: 0-None Present CIWA-Ar Total Score: 3 BHS Progress Note (SOAP) Subjective: feeling better little anxiety Objective: 04/29/20 11:47 Vital Signs Temperature 97.1 F L 04/29/20 09:04 Pulse Rate 87 04/29/20 09:04 Respiratory Rate 18 04/29/20 09:04 Blood Pressure 117/77 04/29/20 09:04 O2 Sat by Pulse Oximetry (%) 100 04/29/20 09:04 aaox3 ambulating no acute distress Assessment: 04/29/20 11:47 withdrawals Plan: continue detox d/c in am
[2020-04-29] MEDS: MELATONIN 5 MG TABLETS PO SCH (21:54)
[2020-04-29] MEDS: THIAMINE HCL 100 MG TABLET (FP) PO SCH (21:54)
[2020-04-30] MEDS ORDERED: chlordiazePOXIDE HCL 10 MG CAPSULE PO ONE (05:00)
[2020-04-30] MEDS: GABAPENTIN 100 MG CAPSULE PO SCH (05:48)
[2020-04-30 06:14] VITALS: BP 131/75; PULSE 88; TEMP 97.7
== END 2020-04-30 09:25 | disposition home or self-care (01) | DRG 775 ==
LOC: YASAS 11:38 → Y6N 13:39
PROVIDERS: ADMIT Allergy & Immunology; ATTEND Allergy & Immunology
PROC: HZ2ZZZZ Detoxification Services for Substance Abuse Treatment (ICD-10-PCS; principal; 2020-04-25)
DX: F10.230 Alcohol dependence with withdrawal, uncomplicated (principal); F17.211 Nicotine dependence, cigarettes, in remission; F10.24 Alcohol dependence with alcohol-induced mood disorder; F32.9 Major depressive disorder, single episode, unspecified; F41.9 Anxiety disorder, unspecified; I10 Essential (primary) hypertension; K21.9 Gastro-esophageal reflux disease without esophagitis; E80.6 Other disorders of bilirubin metabolism; R94.5 Abnormal results of liver function studies; R21 Rash and other nonspecific skin eruption; H53.8 Other visual disturbances; I69.898 Other sequelae of other cerebrovascular disease; Z56.0 Unemployment, unspecified; Z91.018 Allergy to other foods; Z98.51 Tubal ligation status
CPT/HCPCS: 36415; 80053; 80076; 81025; 85027; 86780; 87389; 90732; G0009; U0003

== ENCOUNTER 2021-08-29 12:24 | Inpatient (IN) | payer BC ==
[2021-08-29 13:55] VITALS: BMI 26.2
[2021-08-29] MEDS ORDERED: BISMUTH SUBSALICYLATE 524 MG/30 ML PO PRN (15:11)
[2021-08-29] MEDS ORDERED: MENTHOL/PHENOL 1 EACH UD MM PRN (15:11)
[2021-08-29] MEDS ORDERED: chlordiazePOXIDE HCL 25 MG CAPSULE PO ONE (15:11)
[2021-08-29] MEDS ORDERED: MAGNESIUM CITRATE 300 ML BOTTLE PO PRN (15:11)
[2021-08-29] MEDS ORDERED: ACETAMINOPHEN 325 MG TABLET (FP) PO PRN ×2 (15:11)
[2021-08-29] MEDS ORDERED: ONDANSETRON *ODT* 4 MG TABLET SL PRN (15:11)
[2021-08-29] MEDS ORDERED: NICOTINE 10 MG CARTRIDGE (INHALER) IH PRN (15:11)
[2021-08-29] MEDS ORDERED: IBUPROFEN 400 MG TABLET (FP) PO PRN (15:11)
[2021-08-29] MEDS ORDERED: chlordiazePOXIDE HCL 25 MG CAPSULE PO PRN (15:11)
[2021-08-29] MEDS ORDERED: ONDANSETRON *ODT* 4 MG TABLET ONE (16:45)
[2021-08-29] MEDS: MAG HYDROX/AL HYDROX/SIMETH 30 ML UNIT-DOSE CUP PO PRN (19:19)
[2021-08-29] MEDS ORDERED: chlordiazePOXIDE HCL 25 MG CAPSULE ONE (20:03)
[2021-08-29] MEDS ORDERED: hydrOXYzine PAMOATE 25 MG CAPSULE (FP) PO ONE (20:03)
[2021-08-29] MEDS: chlordiazePOXIDE HCL 25 MG CAPSULE PO SCH ×2 (20:07→22:28)
[2021-08-29] MEDS: hydrOXYzine PAMOATE 25 MG CAPSULE (FP) PO SCH ×2 (21:06→22:28)
[2021-08-29] MEDS: THIAMINE HCL 100 MG TABLET (FP) PO SCH (22:28)
[2021-08-29] MEDS: MELATONIN 5 MG TABLETS PO SCH (22:28)
[2021-08-29] MEDS: METHOCARBAMOL 500 MG TABLET PO PRN (22:28)
[2021-08-29] MEDS: FAMOTIDINE 20 MG TABLET PO SCH (22:28)
[2021-08-30] MEDS: chlordiazePOXIDE HCL 25 MG CAPSULE PO SCH ×4 (06:19→22:20)
[2021-08-30] MEDS: MAGNESIUM HYDROX 2400MG/30ML ORAL SUSPENSION 30 ML CUP PO PRN (06:21)
[2021-08-30] MEDS: hydrOXYzine PAMOATE 25 MG CAPSULE (FP) PO SCH ×5 (06:34→22:20)
[2021-08-30] MEDS: FAMOTIDINE 20 MG TABLET PO SCH ×2 (10:11→22:20)
[2021-08-30] MEDS: PRENATAL VITAMINS W/ FOLIC ACID TABLET (FP) PO SCH (10:11)
[2021-08-30 12:05] LABS: HEMATOCRIT 38.9 % (32.4-45.2); HEMOGLOBIN 12.6 GM/dL (10.7-15.3); MCH 29.4 pg (25.7-33.7); MCHC 32.5 g/dl (32.0-36.0); MEAN CELL VOLUME 90.6 fl (80-96); MEAN PLT VOLUME 8.2 fl (7.5-11.1); PLATELET COUNT 256 10^3/uL (134-434); RDW 14.6 % (11.6-15.6)
[2021-08-30 12:09] LABS: CALCIUM 9.2 mg/dL (8.5-10.1)
[2021-08-30 12:10] LABS: BLOOD UREA NITROGEN 8.6 mg/dL (7-18)
[2021-08-30 12:13] LABS: BILIRUBIN,TOTAL 2.2 mg/dL (0.2-1); TOT PROT 7.9 g/dl (6.4-8.2)
[2021-08-30] MEDS: THIAMINE HCL 100 MG TABLET (FP) PO SCH (22:20)
[2021-08-30] MEDS: MELATONIN 5 MG TABLETS PO SCH (22:20)
[2021-08-31] MEDS: chlordiazePOXIDE HCL 25 MG CAPSULE PO SCH ×4 (06:44→22:23)
[2021-08-31] MEDS: hydrOXYzine PAMOATE 25 MG CAPSULE (FP) PO SCH ×5 (06:44→22:23)
[2021-08-31] MEDS: PRENATAL VITAMINS W/ FOLIC ACID TABLET (FP) PO SCH (10:11)
[2021-08-31] MEDS: FAMOTIDINE 20 MG TABLET PO SCH ×2 (10:12→22:23)
[2021-08-31] MEDS: MELATONIN 5 MG TABLETS PO SCH (22:23)
[2021-08-31] MEDS: MAG HYDROX/AL HYDROX/SIMETH 30 ML UNIT-DOSE CUP PO PRN (22:23)
[2021-08-31] MEDS: METHOCARBAMOL 500 MG TABLET PO PRN (22:23)
[2021-08-31] MEDS: THIAMINE HCL 100 MG TABLET (FP) PO SCH (22:23)
[2021-09-01] MEDS ORDERED: chlordiazePOXIDE HCL 10 MG CAPSULE PO PRN
[2021-09-01] MEDS: hydrOXYzine PAMOATE 25 MG CAPSULE (FP) PO SCH ×5 (06:57→22:25)
[2021-09-01] MEDS: chlordiazePOXIDE HCL 10 MG CAPSULE PO SCH ×4 (06:57→22:25)
[2021-09-01] MEDS: PRENATAL VITAMINS W/ FOLIC ACID TABLET (FP) PO SCH (10:09)
[2021-09-01] MEDS: FAMOTIDINE 20 MG TABLET PO SCH ×2 (10:09→22:25)
[2021-09-01] MEDS ORDERED: DOCUSATE SODIUM 100 MG CAPSULE (FP) PO PRN (18:03)
[2021-09-01] MEDS: METHOCARBAMOL 500 MG TABLET PO PRN (22:25)
[2021-09-01] MEDS: THIAMINE HCL 100 MG TABLET (FP) PO SCH (22:25)
[2021-09-01] MEDS: MELATONIN 5 MG TABLETS PO SCH (22:25)
[2021-09-02] MEDS: hydrOXYzine PAMOATE 25 MG CAPSULE (FP) PO SCH ×5 (05:18→22:41)
[2021-09-02] MEDS: chlordiazePOXIDE HCL 10 MG CAPSULE PO SCH ×2 (05:19→17:35)
[2021-09-02] MEDS: PRENATAL VITAMINS W/ FOLIC ACID TABLET (FP) PO SCH (10:18)
[2021-09-02] MEDS: FAMOTIDINE 20 MG TABLET PO SCH ×2 (10:18→22:41)
[2021-09-02] MEDS: MAGNESIUM HYDROX 2400MG/30ML ORAL SUSPENSION 30 ML CUP PO PRN (17:35)
[2021-09-02] MEDS: THIAMINE HCL 100 MG TABLET (FP) PO SCH (22:41)
[2021-09-02] MEDS: MELATONIN 5 MG TABLETS PO SCH (22:41)
[2021-09-02] MEDS: METHOCARBAMOL 500 MG TABLET PO PRN (22:41)
[2021-09-03] MEDS ORDERED: chlordiazePOXIDE HCL 10 MG CAPSULE PO ONE (05:00)
[2021-09-03] MEDS: hydrOXYzine PAMOATE 25 MG CAPSULE (FP) PO SCH ×2 (06:04→10:49)
[2021-09-03 08:38] VITALS: BP 132/81; PULSE 73; TEMP 96.4
[2021-09-03] MEDS: PRENATAL VITAMINS W/ FOLIC ACID TABLET (FP) PO SCH (09:30)
[2021-09-03] MEDS: FAMOTIDINE 20 MG TABLET PO SCH (09:30)
== END 2021-09-03 10:35 | disposition other institution (70) | DRG 775 ==
LOC: YASAS 12:24 → Y3N 20:03
PROVIDERS: ADMIT Allergy & Immunology; ATTEND Allergy & Immunology
PROC: HZ2ZZZZ Detoxification Services for Substance Abuse Treatment (ICD-10-PCS; principal; 2021-08-29)
DX: F10.230 Alcohol dependence with withdrawal, uncomplicated (principal); F10.24 Alcohol dependence with alcohol-induced mood disorder; F41.9 Anxiety disorder, unspecified; I10 Essential (primary) hypertension; K21.9 Gastro-esophageal reflux disease without esophagitis; Z87.891 Personal history of nicotine dependence; Z86.59 Personal history of other mental and behavioral disorders; Z56.0 Unemployment, unspecified
CPT/HCPCS: 36415; 80053; 85027; 86780; C9803; Q0162; U0003; U0005

== ENCOUNTER 2022-04-17 13:41 | Inpatient (IN) | payer BC ==
[2022-04-17] MEDS ORDERED: LOPERAMIDE HCL 2 MG CAPSULE PO PRN (15:20)
[2022-04-17] MEDS ORDERED: ONDANSETRON *ODT* 4 MG TABLET SL PRN (15:20)
[2022-04-17] MEDS ORDERED: ACETAMINOPHEN 325 MG TABLET (FP) PO PRN ×2 (15:20)
[2022-04-17] MEDS ORDERED: chlordiazePOXIDE HCL 25 MG CAPSULE PO PRN (15:20)
[2022-04-17] MEDS ORDERED: IBUPROFEN 600 MG TABLET (FP) PO PRN (15:20)
[2022-04-17] MEDS ORDERED: MAG HYDROX/AL HYDROX/SIMETH 30 ML UNIT-DOSE CUP PO PRN (15:20)
[2022-04-17] MEDS ORDERED: BENZOCAINE/MENTHOL (CHLORASEPTIC ) LOZENGE MM PRN (15:20)
[2022-04-17] MEDS ORDERED: BISMUTH SUBSALICYLATE 524 MG/30 ML PO PRN (15:20)
[2022-04-17] MEDS ORDERED: MAGNESIUM CITRATE 300 ML BOTTLE PO PRN (15:20)
[2022-04-17] MEDS ORDERED: DICYCLOMINE HCL 10 MG CAPSULE PO PRN (15:20)
[2022-04-17] MEDS ORDERED: IBUPROFEN 400 MG TABLET (FP) PO PRN (15:20)
[2022-04-17] MEDS ORDERED: MAGNESIUM HYDROX 2400MG/30ML ORAL SUSPENSION 30 ML CUP PO PRN (15:20)
[2022-04-17 15:45] VITALS: BMI 24.5
[2022-04-17] MEDS ORDERED: MAG HYDROX/AL HYDROX/SIMETH 30 ML UNIT-DOSE CUP ONE (16:23)
[2022-04-17] MEDS: hydrOXYzine PAMOATE 25 MG CAPSULE (FP) PO SCH ×2 (17:21→22:41)
[2022-04-17] MEDS: chlordiazePOXIDE HCL 25 MG CAPSULE PO SCH ×2 (17:21→22:41)
[2022-04-17] MEDS: METHOCARBAMOL 500 MG TABLET PO PRN (17:22)
[2022-04-17] MEDS ORDERED: THIAMINE HCL 100 MG TABLET (FP) PO SCH (22:00)
[2022-04-17] MEDS ORDERED: MELATONIN 5 MG TABLETS PO SCH (22:00)
[2022-04-17] MEDS: FAMOTIDINE 20 MG TABLET PO SCH (22:41)
[2022-04-18] MEDS: chlordiazePOXIDE HCL 25 MG CAPSULE PO SCH ×2 (05:27→10:29)
[2022-04-18] MEDS: hydrOXYzine PAMOATE 25 MG CAPSULE (FP) PO SCH ×3 (05:27→14:52)
[2022-04-18] MEDS ORDERED: metFORMIN HCL 500 MG TABLET (FP) PO SCH (07:00)
[2022-04-18] MEDS ORDERED: PRENATAL VITAMINS W/ FOLIC ACID TABLET (FP) PO SCH (10:00)
[2022-04-18] MEDS: METHOCARBAMOL 500 MG TABLET PO PRN (10:29)
[2022-04-18] MEDS: FAMOTIDINE 20 MG TABLET PO SCH (10:29)
[2022-04-18] MEDS ORDERED: FLU VACC QS2022-23(6MOS UP)/PF 60 MCG/0.5 ML SYRINGE IM ONE (12:00)
[2022-04-18 13:15] VITALS: BP 134/92; PULSE 83; RESP 18; TEMP 97.6
[2022-04-18 13:30] LABS: HEMATOCRIT 40.4 % (32.4-45.2); HEMOGLOBIN 13.3 GM/dL (10.7-15.3); MCH 29.1 pg (25.7-33.7); MCHC 32.9 g/dl (32.0-36.0); MEAN CELL VOLUME 88.5 fl (80-96); MEAN PLT VOLUME 8.9 fl (7.5-11.1); PLATELET COUNT 165 10^3/uL (134-434); RBC 4.56 M/mm3 (3.60-5.2); RDW 13.6 % (11.6-15.6); WHITE BLOOD COUNT 5.1 K/mm3 (4.0-10.0)
[2022-04-18 13:35] LABS: CALCIUM 9.3 mg/dL (8.5-10.1)
[2022-04-18 13:36] LABS: ALBUMIN 3.7 g/dl (3.4-5.0); BLOOD UREA NITROGEN 8.1 mg/dL (7-18)
[2022-04-18 13:39] LABS: CREATININE 0.9 mg/dL (0.55-1.3)
[2022-04-18 13:40] LABS: BILIRUBIN,TOTAL 1.5 mg/dL (0.2-1)
[2022-04-18 13:41] LABS: TOT PROT 7.5 g/dl (6.4-8.2)
[2022-04-18] MEDS ORDERED: chlordiazePOXIDE HCL 25 MG CAPSULE PO SCH (17:00)
[2022-04-19] MEDS ORDERED: chlordiazePOXIDE HCL 25 MG CAPSULE PO SCH (05:00)
[2022-04-20] MEDS ORDERED: chlordiazePOXIDE HCL 10 MG CAPSULE PO PRN
[2022-04-20] MEDS ORDERED: chlordiazePOXIDE HCL 10 MG CAPSULE PO SCH (05:00)
[2022-04-21] MEDS ORDERED: chlordiazePOXIDE HCL 10 MG CAPSULE PO SCH (05:00)
[2022-04-22] MEDS ORDERED: chlordiazePOXIDE HCL 10 MG CAPSULE PO ONE (05:00)
== END 2022-04-18 15:50 | disposition left against medical advice (07) | DRG 770 ==
LOC: YASAS 13:41 → Y6N 15:36
PROVIDERS: ADMIT Allergy & Immunology; ATTEND Surgery
PROC: HZ2ZZZZ Detoxification Services for Substance Abuse Treatment (ICD-10-PCS; principal; 2022-04-17)
DX: F10.230 Alcohol dependence with withdrawal, uncomplicated (principal); F12.20 Cannabis dependence, uncomplicated; F32.A Depression, unspecified; I10 Essential (primary) hypertension; K21.9 Gastro-esophageal reflux disease without esophagitis; K64.0 First degree hemorrhoids; E11.9 Type 2 diabetes mellitus without complications; Z79.84 Long term (current) use of oral hypoglycemic drugs
CPT/HCPCS: 36415; 80053; 81025; 82962; 85027; 86780; 87811; G0008; Q2036

== ENCOUNTER 2023-06-01 15:22 | Inpatient (IN) | payer BC ==
[2023-06-01 15:40] VITALS: BMI 23.7
[2023-06-01] MEDS ORDERED: LOPERAMIDE HCL 2 MG CAPSULE PO PRN (19:39)
[2023-06-01] MEDS ORDERED: METHOCARBAMOL 500 MG TABLET PO PRN (19:39)
[2023-06-01] MEDS ORDERED: ACETAMINOPHEN 325 MG TABLET (FP) PO PRN (19:39)
[2023-06-01] MEDS ORDERED: NALOXONE HCL (KLOXXADO) 8 MG SPRAY NS PRN (19:39)
[2023-06-01] MEDS ORDERED: BISMUTH SUBSALICYLATE 524 MG/30 ML PO PRN (19:39)
[2023-06-01] MEDS ORDERED: IBUPROFEN 400 MG TABLET (FP) PO PRN (19:39)
[2023-06-01] MEDS ORDERED: ONDANSETRON *ODT* 4 MG TABLET SL PRN (19:39)
[2023-06-01] MEDS ORDERED: IBUPROFEN 600 MG TABLET (FP) PO PRN (19:39)
[2023-06-01] MEDS ORDERED: POLYETHYLENE GLYCOL (HEALTHYLAX) 3350 17 GM PACKET PO PRN (19:39)
[2023-06-01] MEDS ORDERED: NALOXONE HCL 0.4 MG/ML VIAL IM PRN (19:39)
[2023-06-01] MEDS ORDERED: BENZONATATE 200 MG CAPSULE PO PRN (19:39)
[2023-06-01] MEDS ORDERED: MAG HYDROX/AL HYDROX/SIMETH 30 ML UNIT-DOSE CUP PO PRN (19:39)
[2023-06-01] MEDS ORDERED: guaiFENesin 600 MG TABLET.ER (FP) PO PRN (19:39)
[2023-06-01] MEDS ORDERED: BENZOCAINE/MENTHOL (CHLORASEPTIC ) LOZENGE MM PRN (19:39)
[2023-06-01] MEDS ORDERED: MAGNESIUM HYDROX 2400MG/30ML ORAL SUSPENSION 30 ML CUP PO PRN (19:39)
[2023-06-01] MEDS: MELATONIN 5 MG TABLETS PO SCH (22:57)
[2023-06-01] MEDS: THIAMINE HCL 100 MG TABLET (FP) PO SCH (22:58)
[2023-06-02] MEDS: INSULIN SLIDING SCALE (NOVOLOG) 1 VIAL SQ SCH ×2 (06:48→17:04)
[2023-06-02] MEDS ORDERED: SERTRALINE HCL 50 MG TABLET (FP) PO SCH (10:00)
[2023-06-02] MEDS ORDERED: LORazepam 1 MG TABLET PO PRN (10:08)
[2023-06-02] MEDS: SERTRALINE HCL 50 MG TABLET (FP) PO SCH (10:11)
[2023-06-02] MEDS: PRENATAL VITAMINS W/ FOLIC ACID TABLET (FP) PO SCH (10:11)
[2023-06-02 10:28] LABS: HEMATOCRIT 39.6 % (32.4-45.2); HEMOGLOBIN 13.2 GM/dL (10.7-15.3); MCH 29.5 pg (25.7-33.7); MCHC 33.3 g/dl (32.0-36.0); MEAN CELL VOLUME 88.8 fl (80-96); MEAN PLT VOLUME 9.1 fl (7.5-11.1); PLATELET COUNT 118 10^3/uL (134-434); RBC 4.46 M/mm3 (3.60-5.2); RDW 14.6 % (11.6-15.6); WHITE BLOOD COUNT 2.6 K/mm3 (4.0-10.0)
[2023-06-02 10:41] LABS: CHLORIDE 93 mmol/L (98-107); POTASSIUM 3.5 mmol/L (3.5-5.1); SODIUM 135 mmol/L (136-145)
[2023-06-02 10:45] LABS: ALBUMIN 3.8 g/dl (3.4-5.0); ANION GAP 8 mmol/L (4-13); CO2 33 mmol/L (21-32); GLUCOSE,RANDOM 109 mg/dL (74-106)
[2023-06-02 10:46] LABS: BLOOD UREA NITROGEN 9.3 mg/dL (7-18)
[2023-06-02 10:47] LABS: CALCIUM 9.1 mg/dL (8.5-10.1)
[2023-06-02 10:48] LABS: CREATININE 0.8 mg/dL (0.55-1.3); SGOT/AST 84 U/L (15-37)
[2023-06-02 10:49] LABS: SGPT/ALT 58 U/L (13-61)
[2023-06-02 10:51] LABS: ALK PHOS 77 U/L (45-117)
[2023-06-02 10:52] LABS: BILIRUBIN,TOTAL 1.8 mg/dL (0.2-1); TOT PROT 7.4 g/dl (6.4-8.2)
[2023-06-02] MEDS: LORazepam 2 MG TABLET PO SCH ×3 (11:38→22:09)
[2023-06-02] MEDS: metFORMIN HCL 500 MG TABLET (FP) PO SCH (17:03)
[2023-06-02] MEDS: THIAMINE HCL 100 MG TABLET (FP) PO SCH (22:08)
[2023-06-02] MEDS: MELATONIN 5 MG TABLETS PO SCH (22:08)
[2023-06-02] MEDS: FAMOTIDINE 20 MG TABLET PO SCH (22:09)
[2023-06-03] MEDS: LORazepam 1 MG TABLET PO SCH ×4 (05:28→22:50)
[2023-06-03] MEDS: INSULIN SLIDING SCALE (NOVOLOG) 1 VIAL SQ SCH ×2 (07:26→16:48)
[2023-06-03] MEDS: metFORMIN HCL 500 MG TABLET (FP) PO SCH ×2 (07:26→16:54)
[2023-06-03] MEDS: amLODIPine BESYLATE 10 MG TABLET (FP) PO SCH (11:02)
[2023-06-03] MEDS: FAMOTIDINE 20 MG TABLET PO SCH ×2 (11:03→22:50)
[2023-06-03] MEDS: SERTRALINE HCL 50 MG TABLET (FP) PO SCH (11:03)
[2023-06-03] MEDS: PRENATAL VITAMINS W/ FOLIC ACID TABLET (FP) PO SCH (11:03)
[2023-06-03] MEDS: THIAMINE HCL 100 MG TABLET (FP) PO SCH (22:50)
[2023-06-03] MEDS: MELATONIN 5 MG TABLETS PO SCH (22:50)
[2023-06-04] MEDS: LORazepam 0.5 MG TABLET PO SCH ×4 (05:31→22:03)
[2023-06-04] MEDS: metFORMIN HCL 500 MG TABLET (FP) PO SCH ×2 (06:46→16:54)
[2023-06-04] MEDS: INSULIN SLIDING SCALE (NOVOLOG) 1 VIAL SQ SCH ×2 (06:47→16:57)
[2023-06-04] MEDS: SERTRALINE HCL 50 MG TABLET (FP) PO SCH (10:13)
[2023-06-04] MEDS: amLODIPine BESYLATE 10 MG TABLET (FP) PO SCH (10:13)
[2023-06-04] MEDS: FAMOTIDINE 20 MG TABLET PO SCH ×2 (10:13→22:03)
[2023-06-04] MEDS: PRENATAL VITAMINS W/ FOLIC ACID TABLET (FP) PO SCH (10:13)
[2023-06-04] MEDS: THIAMINE HCL 100 MG TABLET (FP) PO SCH (22:03)
[2023-06-04] MEDS: MELATONIN 5 MG TABLETS PO SCH (22:03)
[2023-06-05] MEDS ORDERED: LORazepam 0.5 MG TABLET PO ONE (05:00)
[2023-06-05 06:29] VITALS: RESP 18
[2023-06-05] MEDS: metFORMIN HCL 500 MG TABLET (FP) PO SCH (06:42)
[2023-06-05] MEDS: INSULIN SLIDING SCALE (NOVOLOG) 1 VIAL SQ SCH (06:42)
[2023-06-05] MEDS: SERTRALINE HCL 50 MG TABLET (FP) PO SCH (09:25)
[2023-06-05] MEDS: amLODIPine BESYLATE 10 MG TABLET (FP) PO SCH (09:25)
[2023-06-05] MEDS: PRENATAL VITAMINS W/ FOLIC ACID TABLET (FP) PO SCH (09:25)
[2023-06-05] MEDS: FAMOTIDINE 20 MG TABLET PO SCH (09:25)
[2023-06-05 09:51] VITALS: BP 133/81; PULSE 79; TEMP 98.1
== END 2023-06-05 10:17 | disposition home or self-care (01) | DRG 775 ==
LOC: YASAS 15:22 → Y6N 20:05
PROVIDERS: ADMIT Allergy & Immunology; ATTEND Surgery
PROC: HZ2ZZZZ Detoxification Services for Substance Abuse Treatment (ICD-10-PCS; principal; 2023-06-02)
DX: F10.230 Alcohol dependence with withdrawal, uncomplicated (principal); F33.1 Major depressive disorder, recurrent, moderate; F19.280 Other psychoactive substance dependence with psychoactive substance-induced anxiety disorder; F19.282 Other psychoactive substance dependence with psychoactive substance-induced sleep disorder; I10 Essential (primary) hypertension; K21.9 Gastro-esophageal reflux disease without esophagitis; E11.9 Type 2 diabetes mellitus without complications; Z79.84 Long term (current) use of oral hypoglycemic drugs; M17.0 Bilateral primary osteoarthritis of knee; M19.011 Primary osteoarthritis, right shoulder; M19.012 Primary osteoarthritis, left shoulder; T16.2XXA Foreign body in left ear, initial encounter; T16.1XXA Foreign body in right ear, initial encounter; W44.8XXA Other foreign body entering into or through a natural orifice, initial encounter; Y92.230 Patient room in hospital as the place of occurrence of the external cause; Z62.810 Personal history of physical and sexual abuse in childhood; Z91.410 Personal history of adult physical and sexual abuse; Z87.891 Personal history of nicotine dependence
CPT/HCPCS: 36415; 80053; 80307; 82962; 85027; 86780; 87635

== ENCOUNTER 2023-06-03 17:58 | Emergency (ER) | payer BC ==
[2023-06-03 18:05] VITALS: BP 127/83; PULSE 70; RESP 18; TEMP 98.7; BMI 25.0
== END 2023-06-03 21:32 | disposition home or self-care (01) ==
LOC: JERFT 17:58
PROC: 09C37ZZ Extirpation of Matter from Right External Auditory Canal, Via Natural or Artificial Opening (ICD-10-PCS; principal; 2023-06-03)
DX: T16.1XXA Foreign body in right ear, initial encounter (principal); T16.2XXA Foreign body in left ear, initial encounter
CPT/HCPCS: 99283-25

== ENCOUNTER 2024-03-25 00:36 | Inpatient (IN) | payer BC ==
[2024-03-25 01:12] VITALS: BMI 23.6
[2024-03-25] MEDS ORDERED: IBUPROFEN 600 MG TABLET (FP) PO PRN (01:26)
[2024-03-25] MEDS ORDERED: BENZOCAINE/MENTHOL (CHLORASEPTIC ) LOZENGE MM PRN (01:26)
[2024-03-25] MEDS ORDERED: NALOXONE HCL 0.4 MG/ML VIAL IM PRN (01:26)
[2024-03-25] MEDS ORDERED: guaiFENesin 600 MG TABLET.ER (FP) PO PRN (01:26)
[2024-03-25] MEDS ORDERED: BENZONATATE 200 MG CAPSULE PO PRN (01:26)
[2024-03-25] MEDS ORDERED: IBUPROFEN 400 MG TABLET (FP) PO PRN (01:26)
[2024-03-25] MEDS ORDERED: NALOXONE (NARCAN) HCL 4 MG/0.1 ML SPRAY NS PRN (01:26)
[2024-03-25] MEDS ORDERED: ONDANSETRON *ODT* 4 MG TABLET SL PRN (01:26)
[2024-03-25] MEDS ORDERED: POLYETHYLENE GLYCOL (HEALTHYLAX) 3350 17 GM PACKET PO PRN (01:26)
[2024-03-25] MEDS ORDERED: MAGNESIUM HYDROX 2400MG/30ML ORAL SUSPENSION 30 ML CUP PO PRN (01:26)
[2024-03-25] MEDS ORDERED: chlordiazePOXIDE HCL 25 MG CAPSULE PO PRN (01:26)
[2024-03-25] MEDS ORDERED: hydrOXYzine PAMOATE 25 MG CAPSULE (FP) PO ONE (01:47)
[2024-03-25] MEDS: TRIMETHOBENZAMIDE HCL 200MG/2ML INJ IM PRN (01:58)
[2024-03-25] MEDS: hydrOXYzine PAMOATE 25 MG CAPSULE (FP) PO PRN (02:00)
[2024-03-25] MEDS: ACETAMINOPHEN 325 MG TABLET (FP) PO PRN (05:30)
[2024-03-25] MEDS: chlordiazePOXIDE HCL 25 MG CAPSULE PO SCH (05:49)
[2024-03-25 09:20] LABS: POTASSIUM 3.7 mmol/L (3.5-5.1)
[2024-03-25 09:22] LABS: HEMATOCRIT 35.2 % (32.4-45.2); HEMOGLOBIN 11.6 GM/dL (10.7-15.3); MCH 30.6 pg (25.7-33.7); MCHC 33.1 g/dl (32.0-36.0); MEAN CELL VOLUME 92.5 fl (80-96); PLATELET COUNT 241 10^3/uL (134-434); RDW 15.4 % (11.6-15.6); WHITE BLOOD COUNT 3.9 K/mm3 (4.0-10.0)
[2024-03-25 09:26] LABS: ALBUMIN 3.5 g/dl (3.4-5.0); BLOOD UREA NITROGEN 12.2 mg/dL (7-18); CALCIUM 8.5 mg/dL (8.5-10.1)
[2024-03-25 09:29] LABS: CREATININE 0.8 mg/dL (0.55-1.3)
[2024-03-25 09:31] LABS: BILIRUBIN,TOTAL 1.2 mg/dL (0.2-1); TOT PROT 6.7 g/dl (6.4-8.2)
[2024-03-25] MEDS: PRENATAL VITAMINS W/ FOLIC ACID TABLET (FP) PO SCH (09:57)
[2024-03-25] MEDS: PANTOPRAZOLE 40 MG TABLET PO SCH (09:57)
[2024-03-25] MEDS: LISINOPRIL 5 MG TABLET PO SCH (14:13)
[2024-03-25] MEDS: metFORMIN HCL 500 MG TABLET (FP) PO SCH (17:01)
[2024-03-25] MEDS: DICYCLOMINE HCL 10 MG CAPSULE PO PRN (17:02)
[2024-03-25] MEDS: MELATONIN 5 MG TABLETS PO SCH (22:04)
[2024-03-25] MEDS: THIAMINE 100 MG TABLET PO SCH (22:04)
[2024-03-26] MEDS: chlordiazePOXIDE HCL 25 MG CAPSULE PO SCH (05:46)
[2024-03-26] MEDS: BISMUTH SUBSALICYLATE 524 MG/30 ML PO PRN (08:36)
[2024-03-26] MEDS: MAG HYDROX/AL HYDROX/SIMETH 30 ML UNIT-DOSE CUP PO PRN (14:34)
[2024-03-26] MEDS: METHOCARBAMOL 500 MG TABLET PO PRN (22:10)
[2024-03-27] MEDS ORDERED: chlordiazePOXIDE HCL 10 MG CAPSULE PO PRN
[2024-03-27] MEDS: LOPERAMIDE HCL 2 MG CAPSULE PO PRN (01:37)
[2024-03-27] MEDS: chlordiazePOXIDE HCL 10 MG CAPSULE PO SCH (05:27)
[2024-03-27 08:42] VITALS: BP 122/83; PULSE 76; TEMP 97.8
[2024-03-27 08:50] VITALS: RESP 18
[2024-03-28] MEDS ORDERED: chlordiazePOXIDE HCL 10 MG CAPSULE PO SCH (05:00)
[2024-03-29] MEDS ORDERED: chlordiazePOXIDE HCL 10 MG CAPSULE PO ONE (05:00)
== END 2024-03-27 10:25 | disposition left against medical advice (07) | DRG 770 ==
LOC: YASAS 00:36 → Y3N 02:07
PROVIDERS: ADMIT Allergy & Immunology; ATTEND Surgery
PROC: HZ2ZZZZ Detoxification Services for Substance Abuse Treatment (ICD-10-PCS; principal; 2024-03-25)
DX: F10.230 Alcohol dependence with withdrawal, uncomplicated (principal); F12.20 Cannabis dependence, uncomplicated; F33.1 Major depressive disorder, recurrent, moderate; F41.9 Anxiety disorder, unspecified; I10 Essential (primary) hypertension; K21.9 Gastro-esophageal reflux disease without esophagitis; E11.9 Type 2 diabetes mellitus without complications; Z79.84 Long term (current) use of oral hypoglycemic drugs; M19.012 Primary osteoarthritis, left shoulder; M17.0 Bilateral primary osteoarthritis of knee; Z62.810 Personal history of physical and sexual abuse in childhood; Z91.410 Personal history of adult physical and sexual abuse
CPT/HCPCS: 36415; 80053; 80305; 80307; 82962; 85027; 86780; 93005; 93010

== ENCOUNTER 2024-09-01 08:17 | Inpatient (IN) | payer BC ==
[2024-09-01 08:53] VITALS: BMI 23.1
[2024-09-01] MEDS ORDERED: chlordiazePOXIDE HCL 25 MG CAPSULE PO PRN (09:28)
[2024-09-01] MEDS ORDERED: LOPERAMIDE HCL 2 MG CAPSULE PO PRN (09:30)
[2024-09-01] MEDS ORDERED: ACETAMINOPHEN 325 MG TABLET (FP) PO PRN (09:30)
[2024-09-01] MEDS ORDERED: BISMUTH SUBSALICYLATE 524 MG/30 ML PO PRN (09:30)
[2024-09-01] MEDS ORDERED: POLYETHYLENE GLYCOL (HEALTHYLAX) 3350 17 GM PACKET PO PRN (09:30)
[2024-09-01] MEDS ORDERED: guaiFENesin 600 MG TABLET.ER (FP) PO PRN (09:30)
[2024-09-01] MEDS ORDERED: NALOXONE (NARCAN) HCL 4 MG/0.1 ML SPRAY NS PRN (09:30)
[2024-09-01] MEDS ORDERED: MAG HYDROX/AL HYDROX/SIMETH 30 ML UNIT-DOSE CUP PO PRN (09:30)
[2024-09-01] MEDS ORDERED: BENZONATATE 200 MG CAPSULE PO PRN (09:30)
[2024-09-01] MEDS ORDERED: BENZOCAINE/MENTHOL (CHLORASEPTIC ) LOZENGE MM PRN (09:30)
[2024-09-01] MEDS ORDERED: ONDANSETRON *ODT* 4 MG TABLET SL PRN (09:30)
[2024-09-01] MEDS ORDERED: DICYCLOMINE HCL 10 MG CAPSULE PO PRN (09:30)
[2024-09-01] MEDS ORDERED: IBUPROFEN 600 MG TABLET (FP) PO PRN (09:30)
[2024-09-01] MEDS ORDERED: IBUPROFEN 400 MG TABLET (FP) PO PRN (09:30)
[2024-09-01] MEDS ORDERED: PRENATAL VITAMINS W/ FOLIC ACID TABLET (FP) PO ONE (10:15)
[2024-09-01] MEDS ORDERED: chlordiazePOXIDE HCL 25 MG CAPSULE ONE (10:15)
[2024-09-01] MEDS: PRENATAL VITAMINS W/ FOLIC ACID TABLET (FP) PO SCH (10:24)
[2024-09-01] MEDS: chlordiazePOXIDE HCL 25 MG CAPSULE PO SCH (10:25)
[2024-09-01] MEDS: amLODIPine BESYLATE 5 MG TABLET (FP) PO SCH (11:50)
[2024-09-01] MEDS: metFORMIN HCL 500 MG TABLET (FP) PO SCH (17:18)
[2024-09-01] MEDS: MELATONIN 5 MG TABLETS PO SCH (22:34)
[2024-09-01] MEDS: THIAMINE 100 MG TABLET PO SCH (22:34)
[2024-09-02] MEDS: PANTOPRAZOLE 40 MG TABLET PO SCH (09:18)
[2024-09-02 10:05] LABS: POTASSIUM 4.3 mmol/L (3.5-5.1)
[2024-09-02 10:06] LABS: HEMATOCRIT 41.7 % (32.4-45.2); HEMOGLOBIN 13.6 GM/dL (10.7-15.3); MCH 30.2 pg (25.7-33.7); MCHC 32.7 g/dl (32.0-36.0); MEAN CELL VOLUME 92.3 fl (80-96); MEAN PLT VOLUME 8.5 fl (7.5-11.1); PLATELET COUNT 222 10^3/uL (134-434); RBC 4.51 M/mm3 (3.60-5.2); RDW 14.9 % (11.6-15.6); WHITE BLOOD COUNT 3.5 K/mm3 (4.0-10.0)
[2024-09-02 10:07] LABS: ALBUMIN 4.1 g/dl (3.4-5.0)
[2024-09-02 10:11] LABS: BLOOD UREA NITROGEN 10.5 mg/dL (7-18); CALCIUM 9.6 mg/dL (8.5-10.1)
[2024-09-02 10:14] LABS: CREATININE 0.9 mg/dL (0.55-1.3)
[2024-09-02 10:16] LABS: BILIRUBIN,TOTAL 1.5 mg/dL (0.2-1); TOT PROT 7.8 g/dl (6.4-8.2)
[2024-09-02] MEDS: FOLIC ACID 1 MG TABLET (FP) PO SCH (10:18)
[2024-09-02] MEDS: SERTRALINE HCL 50 MG TABLET (FP) PO SCH (10:25)
[2024-09-02] MEDS: METHOCARBAMOL 500 MG TABLET PO PRN (22:13)
[2024-09-02] MEDS: MELATONIN 5 MG TABLETS PO SCH (22:13)
[2024-09-03] MEDS: chlordiazePOXIDE HCL 25 MG CAPSULE PO SCH (05:21)
[2024-09-03] MEDS: PANTOPRAZOLE 40 MG TABLET PO SCH (07:44)
[2024-09-03 12:20] LABS: POTASSIUM 4.8 mmol/L (3.5-5.1)
[2024-09-03 12:24] LABS: CALCIUM 9.5 mg/dL (8.5-10.1)
[2024-09-03 12:25] LABS: ALBUMIN 3.7 g/dl (3.4-5.0); BLOOD UREA NITROGEN 17.6 mg/dL (7-18); CREATININE 0.9 mg/dL (0.55-1.3)
[2024-09-03 12:27] LABS: BILIRUBIN,TOTAL 0.6 mg/dL (0.2-1); TOT PROT 7.5 g/dl (6.4-8.2)
[2024-09-04] MEDS ORDERED: chlordiazePOXIDE HCL 10 MG CAPSULE PO PRN
[2024-09-04] MEDS: chlordiazePOXIDE HCL 10 MG CAPSULE PO SCH (05:59)
[2024-09-05] MEDS: hydrOXYzine PAMOATE 25 MG CAPSULE (FP) PO PRN (00:30)
[2024-09-05] MEDS: chlordiazePOXIDE HCL 10 MG CAPSULE PO SCH (05:43)
[2024-09-06] MEDS: chlordiazePOXIDE HCL 10 MG CAPSULE PO ONE (05:35)
[2024-09-06] MEDS: MAGNESIUM HYDROX 2400MG/30ML ORAL SUSPENSION 30 ML CUP PO PRN (06:32)
[2024-09-08 07:57] VITALS: RESP 18
[2024-09-08 09:09] VITALS: BP 129/89; PULSE 76; TEMP 97.1
== END 2024-09-08 10:35 | disposition other institution (70) | DRG 775 ==
LOC: YASAS 08:17 → Y3N 09:55
PROVIDERS: ADMIT Allergy & Immunology; ATTEND Allergy & Immunology
PROC: HZ2ZZZZ Detoxification Services for Substance Abuse Treatment (ICD-10-PCS; principal; 2024-09-01)
DX: F10.230 Alcohol dependence with withdrawal, uncomplicated (principal); F10.280 Alcohol dependence with alcohol-induced anxiety disorder; F10.24 Alcohol dependence with alcohol-induced mood disorder; F33.1 Major depressive disorder, recurrent, moderate; E87.1 Hypo-osmolality and hyponatremia; I10 Essential (primary) hypertension; K21.9 Gastro-esophageal reflux disease without esophagitis; E11.59 Type 2 diabetes mellitus with other circulatory complications; Z79.84 Long term (current) use of oral hypoglycemic drugs; M17.0 Bilateral primary osteoarthritis of knee; R94.5 Abnormal results of liver function studies; Z87.891 Personal history of nicotine dependence
CPT/HCPCS: 36415; 80053; 80305; 82962; 85027; 86780; 87811

== ENCOUNTER 2024-09-08 10:55 | Inpatient (IN) | payer BC ==
[2024-09-08] MEDS ORDERED: BENZOCAINE/MENTHOL (CHLORASEPTIC ) LOZENGE MM PRN (13:21)
[2024-09-08] MEDS ORDERED: guaiFENesin 600 MG TABLET.ER (FP) PO PRN (13:21)
[2024-09-08] MEDS ORDERED: IBUPROFEN 600 MG TABLET (FP) PO PRN (13:21)
[2024-09-08] MEDS ORDERED: POLYETHYLENE GLYCOL (HEALTHYLAX) 3350 17 GM PACKET PO PRN (13:21)
[2024-09-08] MEDS ORDERED: MAG HYDROX/AL HYDROX/SIMETH 30 ML UNIT-DOSE CUP PO PRN (13:21)
[2024-09-08] MEDS ORDERED: BENZONATATE 200 MG CAPSULE PO PRN (13:21)
[2024-09-08] MEDS ORDERED: ACETAMINOPHEN 325 MG TABLET (FP) PO PRN (13:21)
[2024-09-08] MEDS ORDERED: IBUPROFEN 400 MG TABLET (FP) PO PRN (13:21)
[2024-09-08] MEDS ORDERED: LOPERAMIDE HCL 2 MG CAPSULE PO PRN (13:21)
[2024-09-08] MEDS: metFORMIN HCL 500 MG TABLET (FP) PO SCH (16:49)
[2024-09-08] MEDS: MELATONIN 5 MG TABLETS PO SCH (22:12)
[2024-09-08] MEDS: THIAMINE 100 MG TABLET PO SCH (22:12)
[2024-09-08] MEDS: MAGNESIUM HYDROX 2400MG/30ML ORAL SUSPENSION 30 ML CUP PO PRN (22:13)
[2024-09-08] MEDS: hydrOXYzine PAMOATE 25 MG CAPSULE (FP) PO PRN (22:15)
[2024-09-09] MEDS: PRENATAL VITAMINS W/ FOLIC ACID TABLET (FP) PO SCH (05:36)
[2024-09-09] MEDS: SERTRALINE HCL 50 MG TABLET (FP) PO SCH (11:09)
[2024-09-09] MEDS: PANTOPRAZOLE 40 MG TABLET PO SCH (11:09)
[2024-09-09] MEDS: amLODIPine BESYLATE 5 MG TABLET (FP) PO SCH (11:09)
[2024-09-11] MEDS: METHOCARBAMOL 500 MG TABLET PO PRN (21:48)
[2024-09-13] MEDS: PANTOPRAZOLE 40 MG TABLET PO SCH (06:32)
[2024-09-18 06:56] VITALS: RESP 18
[2024-09-19] MEDS: NALTREXONE HCL 50 MG TABLET PO ONE (14:54)
[2024-09-20] MEDS: NALTREXONE HCL 50 MG TABLET PO SCH (10:08)
[2024-09-21 07:06] VITALS: TEMP 97.8
[2024-09-21 10:34] VITALS: BP 109/71; PULSE 78
== END 2024-09-21 13:00 | disposition home or self-care (01) | DRG 772 ==
LOC: YASAS 10:55 → Y3NR 10:56 → Y5N 09-12 12:11
PROVIDERS: ADMIT Allergy & Immunology; ATTEND Psychiatry & Neurology Pain Medicine
PROC: HZ42ZZZ Group Counseling for Substance Abuse Treatment, Cognitive-Behavioral (ICD-10-PCS; principal; 2024-09-08)
DX: F10.20 Alcohol dependence, uncomplicated (principal); F10.280 Alcohol dependence with alcohol-induced anxiety disorder; F10.282 Alcohol dependence with alcohol-induced sleep disorder; F10.24 Alcohol dependence with alcohol-induced mood disorder; F32.A Depression, unspecified; F41.9 Anxiety disorder, unspecified; I10 Essential (primary) hypertension; K21.9 Gastro-esophageal reflux disease without esophagitis; K64.0 First degree hemorrhoids; E11.59 Type 2 diabetes mellitus with other circulatory complications; Z79.84 Long term (current) use of oral hypoglycemic drugs; Z87.891 Personal history of nicotine dependence; Z88.8 Allergy status to other drugs, medicaments and biological substances
CPT/HCPCS: 82962

== ENCOUNTER 2024-09-30 19:01 | Inpatient (IN) | payer BC ==
[2024-09-30 19:18] VITALS: BMI 22.8
[2024-09-30] MEDS ORDERED: guaiFENesin 600 MG TABLET.ER (FP) PO PRN (19:52)
[2024-09-30] MEDS ORDERED: IBUPROFEN 400 MG TABLET (FP) PO PRN (19:52)
[2024-09-30] MEDS ORDERED: LOPERAMIDE HCL 2 MG CAPSULE PO PRN (19:52)
[2024-09-30] MEDS ORDERED: BENZONATATE 200 MG CAPSULE PO PRN (19:52)
[2024-09-30] MEDS ORDERED: POLYETHYLENE GLYCOL (HEALTHYLAX) 3350 17 GM PACKET PO PRN (19:52)
[2024-09-30] MEDS ORDERED: NALOXONE (NARCAN) HCL 4 MG/0.1 ML SPRAY NS PRN (19:52)
[2024-09-30] MEDS ORDERED: BISMUTH SUBSALICYLATE 524 MG/30 ML PO PRN (19:52)
[2024-09-30] MEDS ORDERED: DICYCLOMINE HCL 10 MG CAPSULE PO PRN (19:52)
[2024-09-30] MEDS ORDERED: ONDANSETRON *ODT* 4 MG TABLET SL PRN (19:52)
[2024-09-30] MEDS ORDERED: BENZOCAINE/MENTHOL (CHLORASEPTIC ) LOZENGE MM PRN (19:52)
[2024-09-30] MEDS ORDERED: MAG HYDROX/AL HYDROX/SIMETH 30 ML UNIT-DOSE CUP PO PRN (19:52)
[2024-09-30] MEDS ORDERED: ACETAMINOPHEN 325 MG TABLET (FP) PO PRN (19:52)
[2024-09-30] MEDS ORDERED: chlordiazePOXIDE HCL 25 MG CAPSULE PO PRN (19:54)
[2024-09-30] MEDS ORDERED: ONDANSETRON *ODT* 4 MG TABLET ONE (20:54)
[2024-09-30] MEDS ORDERED: TRIMETHOBENZAMIDE HCL 200MG/2ML INJ IM ONE (20:59)
[2024-09-30] MEDS: TRIMETHOBENZAMIDE HCL 200MG/2ML INJ IM ONE (21:02)
[2024-09-30] MEDS: MAGNESIUM HYDROX 2400MG/30ML ORAL SUSPENSION 30 ML CUP PO PRN (21:25)
[2024-09-30] MEDS: THIAMINE 100 MG TABLET PO SCH (22:34)
[2024-09-30] MEDS: MELATONIN 5 MG TABLETS PO SCH (22:34)
[2024-09-30] MEDS: chlordiazePOXIDE HCL 25 MG CAPSULE PO SCH (22:35)
[2024-10-01 01:14] LABS: EPI CELLS 11 /uL (0-25.1); HYALINE CASTS 0 /uL (0-3.1); PH,URINE 5.5 (5.0-8.0); URINE APPEARANCE TURBID; URINE BACTERIA 14 /uL (0-1359); URINE BILIRUBIN NEGATIVE (NEGATIVE); URINE COLOR YELLOW; URINE GLUCOSE (UA) NEGATIVE (NEGATIVE); URINE KETONE NEGATIVE (NEGATIVE); URINE LEUK ESTERASE 2+ (NEGATIVE); URINE NITRITE NEGATIVE (NEGATIVE); URINE PROTEIN 2+ (NEGATIVE); URINE RBC 19 /uL (0-23.9); URINE WBC 1106 /uL (0-25.8)
[2024-10-01] MEDS: PRENATAL VITAMINS W/ FOLIC ACID TABLET (FP) PO SCH (10:33)
[2024-10-01] MEDS: amLODIPine BESYLATE 5 MG TABLET (FP) PO SCH (10:34)
[2024-10-01] MEDS: NALTREXONE HCL 50 MG TABLET PO SCH (10:34)
[2024-10-01] MEDS: IBUPROFEN 600 MG TABLET (FP) PO PRN (10:37)
[2024-10-01 11:26] LABS: HEMATOCRIT 37.4 % (32.4-45.2); HEMOGLOBIN 12.6 GM/dL (10.7-15.3); MCH 29.7 pg (25.7-33.7); MCHC 33.7 g/dl (32.0-36.0); MEAN PLT VOLUME 8.1 fl (7.5-11.1); PLATELET COUNT 206 10^3/uL (134-434); RBC 4.26 M/mm3 (3.60-5.2); RDW 15.2 % (11.6-15.6); WHITE BLOOD COUNT 3.7 K/mm3 (4.0-10.0)
[2024-10-01] MEDS: SERTRALINE HCL 50 MG TABLET (FP) PO SCH (11:42)
[2024-10-01 12:27] LABS: POTASSIUM 4.1 mmol/L (3.5-5.1)
[2024-10-01 12:39] LABS: ALBUMIN 3.8 g/dl (3.4-5.0)
[2024-10-01 12:40] LABS: BLOOD UREA NITROGEN 13.4 mg/dL (7-18)
[2024-10-01 12:41] LABS: CALCIUM 8.7 mg/dL (8.5-10.1)
[2024-10-01 12:43] LABS: BILIRUBIN,TOTAL 1.1 mg/dL (0.2-1); CREATININE 0.8 mg/dL (0.55-1.3)
[2024-10-01 12:44] LABS: TOT PROT 7.4 g/dl (6.4-8.2)
[2024-10-01] MEDS: chlordiazePOXIDE HCL 25 MG CAPSULE PO ONE (14:41)
[2024-10-01] MEDS: METOPROLOL TARTRATE 50 MG TABLET (FP) PO ONE (14:41)
[2024-10-01] MEDS: NITROFURANTOIN MONOHYD/M-CRYST 100 MG CAPSULE PO ONE (14:56)
[2024-10-01] MEDS: metFORMIN HCL 500 MG TABLET (FP) PO SCH (17:00)
[2024-10-01] MEDS: amLODIPine BESYLATE 5 MG TABLET (FP) PO ONE (19:02)
[2024-10-01] MEDS: METHOCARBAMOL 500 MG TABLET PO PRN (22:32)
[2024-10-01] MEDS: NITROFURANTOIN MONOHYD/M-CRYST 100 MG CAPSULE PO SCH (23:00)
[2024-10-02] MEDS: chlordiazePOXIDE HCL 25 MG CAPSULE PO SCH (05:37)
[2024-10-02] MEDS: PANTOPRAZOLE 40 MG TABLET PO SCH (07:58)
[2024-10-03] MEDS ORDERED: chlordiazePOXIDE HCL 10 MG CAPSULE PO PRN
[2024-10-03] MEDS: chlordiazePOXIDE HCL 10 MG CAPSULE PO SCH (05:52)
[2024-10-03] MEDS: amLODIPine BESYLATE 10 MG TABLET (FP) PO SCH (10:28)
[2024-10-04] MEDS: chlordiazePOXIDE HCL 10 MG CAPSULE PO SCH (05:40)
[2024-10-04 20:48] VITALS: RESP 17
[2024-10-05] MEDS: chlordiazePOXIDE HCL 10 MG CAPSULE PO ONE (05:55)
[2024-10-05 07:54] VITALS: TEMP 97.3
[2024-10-05 08:51] VITALS: BP 101/74; PULSE 81
== END 2024-10-05 10:38 | disposition home or self-care (01) | DRG 774 ==
LOC: YASAS 19:01 → Y6N 20:40
PROVIDERS: ADMIT Allergy & Immunology; ATTEND Allergy & Immunology
PROC: HZ2ZZZZ Detoxification Services for Substance Abuse Treatment (ICD-10-PCS; principal; 2024-09-30)
DX: F10.230 Alcohol dependence with withdrawal, uncomplicated (principal); F14.20 Cocaine dependence, uncomplicated; F41.9 Anxiety disorder, unspecified; F32.A Depression, unspecified; I10 Essential (primary) hypertension; K21.9 Gastro-esophageal reflux disease without esophagitis; N39.0 Urinary tract infection, site not specified; R31.9 Hematuria, unspecified; M15.9 Polyosteoarthritis, unspecified; R73.03 Prediabetes; Z62.810 Personal history of physical and sexual abuse in childhood
CPT/HCPCS: 36415; 80053; 80305; 80307; 81003; 82962; 85027; 86780

== ENCOUNTER 2025-01-06 14:32 | Inpatient (IN) | payer BC ==
[2025-01-06] MEDS ORDERED: ACETAMINOPHEN 325 MG TABLET (FP) PO PRN (15:06)
[2025-01-06] MEDS ORDERED: NALOXONE (NARCAN) HCL 4 MG/0.1 ML SPRAY NS PRN (15:06)
[2025-01-06] MEDS ORDERED: BENZONATATE 200 MG CAPSULE PO PRN (15:06)
[2025-01-06] MEDS ORDERED: guaiFENesin 600 MG TABLET.ER (FP) PO PRN (15:06)
[2025-01-06] MEDS ORDERED: POLYETHYLENE GLYCOL (HEALTHYLAX) 3350 17 GM PACKET PO PRN (15:06)
[2025-01-06] MEDS ORDERED: MAGNESIUM HYDROX 2400MG/30ML ORAL SUSPENSION 30 ML CUP PO PRN (15:06)
[2025-01-06] MEDS ORDERED: BENZOCAINE/MENTHOL (CHLORASEPTIC ) LOZENGE MM PRN (15:06)
[2025-01-06] MEDS ORDERED: ONDANSETRON *ODT* 4 MG TABLET SL PRN (15:06)
[2025-01-06] MEDS ORDERED: IBUPROFEN 400 MG TABLET (FP) PO PRN (15:06)
[2025-01-06] MEDS ORDERED: chlordiazePOXIDE HCL 25 MG CAPSULE PO PRN (15:06)
[2025-01-06] MEDS ORDERED: MAG HYDROX/AL HYDROX/SIMETH 30 ML UNIT-DOSE CUP PO PRN (15:06)
[2025-01-06 15:51] VITALS: BMI 25.7
[2025-01-06] MEDS: metFORMIN HCL 500 MG TABLET (FP) PO SCH (16:59)
[2025-01-06] MEDS: chlordiazePOXIDE HCL 25 MG CAPSULE PO SCH (16:59)
[2025-01-06] MEDS: THIAMINE 100 MG TABLET PO SCH (22:33)
[2025-01-06] MEDS: MELATONIN 5 MG TABLETS PO SCH (22:33)
[2025-01-06] MEDS: LOPERAMIDE HCL 2 MG CAPSULE PO PRN (22:33)
[2025-01-06] MEDS: DICYCLOMINE HCL 10 MG CAPSULE PO PRN (22:33)
[2025-01-07] MEDS: PRENATAL VITAMINS W/ FOLIC ACID TABLET (FP) PO SCH (11:01)
[2025-01-07] MEDS: FAMOTIDINE 20 MG TABLET PO SCH (11:01)
[2025-01-07] MEDS: amLODIPine BESYLATE 5 MG TABLET (FP) PO SCH (11:02)
[2025-01-07] MEDS: SERTRALINE HCL 25 MG TABLET (FP) PO SCH (11:02)
[2025-01-07] MEDS: levETIRAcetam 500 MG TABLET (FP) PO ONE (11:26)
[2025-01-07 12:44] LABS: HEMATOCRIT 43.7 % (34.1-44.9); HEMOGLOBIN 14.1 g/dL (11.2-15.7); MCHC 32.3 g/dl (32.2-35.5); MEAN CELL VOLUME 90.3 fl (79.4-94.8); MEAN PLT VOLUME 11.2 fl (9.4-12.3); PLATELET COUNT 155 x10^3/uL (182-369); RDW 13.7 % (12.3-16.6)
[2025-01-07 12:52] LABS: CHLORIDE 90 mmol/L (98-107); POTASSIUM 3.3 mmol/L (3.5-5.1); SODIUM 129 mmol/L (136-145)
[2025-01-07 13:03] LABS: CALCIUM 9.6 mg/dL (8.5-10.1)
[2025-01-07 13:04] LABS: ALBUMIN 4.1 g/dl (3.4-5.0); ANION GAP 8 mmol/L (4-13); CO2 31 mmol/L (21-32); GLUCOSE,RANDOM 152 mg/dL (74-106)
[2025-01-07 13:07] LABS: CREATININE 1.3 mg/dL (0.55-1.3); SGOT/AST 64 U/L (15-37); SGPT/ALT 41 U/L (13-61)
[2025-01-07 13:08] LABS: BILIRUBIN,TOTAL 0.8 mg/dL (0.2-1)
[2025-01-07 13:09] LABS: ALK PHOS 100 U/L (45-117)
[2025-01-07 13:12] LABS: BLOOD UREA NITROGEN 11.2 mg/dL (7-18)
[2025-01-07] MEDS: METHOCARBAMOL 500 MG TABLET PO PRN (22:24)
[2025-01-07] MEDS: levETIRAcetam 500 MG TABLET (FP) PO SCH (22:24)
[2025-01-07] MEDS: BISMUTH SUBSALICYLATE 524 MG/30 ML PO PRN (22:51)
[2025-01-08] MEDS: chlordiazePOXIDE HCL 25 MG CAPSULE PO SCH (06:37)
[2025-01-08] MEDS: POTASSIUM CHLORIDE ORAL LIQUID 20 MEQ/15 ML PO ONE (12:06)
[2025-01-09] MEDS ORDERED: chlordiazePOXIDE HCL 10 MG CAPSULE PO PRN
[2025-01-09] MEDS: chlordiazePOXIDE HCL 10 MG CAPSULE PO SCH (05:49)
[2025-01-09] MEDS: IBUPROFEN 600 MG TABLET (FP) PO PRN (10:06)
[2025-01-09] MEDS: hydrOXYzine PAMOATE 25 MG CAPSULE (FP) PO PRN (22:51)
[2025-01-10] MEDS: chlordiazePOXIDE HCL 10 MG CAPSULE PO SCH (05:53)
[2025-01-10 09:28] VITALS: BP 109/65; PULSE 92; RESP 17; TEMP 97.7
[2025-01-10 12:16] LABS: POTASSIUM 4.2 mmol/L (3.5-5.1)
[2025-01-10 12:19] LABS: CALCIUM 9.5 mg/dL (8.5-10.1)
[2025-01-10 12:20] LABS: BLOOD UREA NITROGEN 16.8 mg/dL (7-18)
[2025-01-10 12:21] LABS: CREATININE 0.7 mg/dL (0.55-1.3)
[2025-01-11] MEDS ORDERED: chlordiazePOXIDE HCL 10 MG CAPSULE PO ONE (05:00)
== END 2025-01-10 10:16 | disposition home or self-care (01) | DRG 775 ==
LOC: YASAS 14:32 → Y6N 15:34
PROVIDERS: ADMIT Family Medicine; ATTEND Family Medicine Addiction Medicine
PROC: HZ2ZZZZ Detoxification Services for Substance Abuse Treatment (ICD-10-PCS; principal; 2025-01-06)
DX: F10.230 Alcohol dependence with withdrawal, uncomplicated (principal); F33.1 Major depressive disorder, recurrent, moderate; F19.280 Other psychoactive substance dependence with psychoactive substance-induced anxiety disorder; F19.282 Other psychoactive substance dependence with psychoactive substance-induced sleep disorder; E87.6 Hypokalemia; I10 Essential (primary) hypertension; K21.9 Gastro-esophageal reflux disease without esophagitis; R55 Syncope and collapse; E11.59 Type 2 diabetes mellitus with other circulatory complications; Z79.84 Long term (current) use of oral hypoglycemic drugs; Z62.810 Personal history of physical and sexual abuse in childhood; Z91.410 Personal history of adult physical and sexual abuse; Z87.891 Personal history of nicotine dependence
CPT/HCPCS: 36415; 80048; 80053; 80305; 80307; 82140; 82962; 85027; 86780; 93005; 93010